=== PATIENT | male | born 1960 | race African-American/Black ===

== ENCOUNTER 2025-02-20 04:23 | Emergency (ER) | payer MEDICARE, SELFPAY ==
--- NOTE | ~2025-02-20 | CT_ITS ---
EXAMINATION: CTA chest abdomen pelvis DATE: 02/20/2025 05:22 INDICATION: Widened mediastinum, chest pain and shortness of breath TECHNIQUE: Computed tomographic angiography (CTA) of the chest, abdomen and pelvis was performed with 100 cc of Omnipaque-350 intravenous contrast. Additional 3D reconstructions utilizing rotating maxim um intensity projection (MIP) were performed. Automated exposure control and iterative reconstruction technique were employed. The dose-length product was 838.10 mGy-cm. COMPARISON: None FINDINGS: Chest : Lungs are clear with no pneumonia, pulmonary edema, pleural effusion or pneumothorax. Heart size is n ormal. No pericardial effusion. Aortic valve calcification. Thoracic aorta is normal in caliber with no dissection. There is good opacification of the pulmonary arteries demonstrating no pulmonary embol ism. No pathologically enlarged thoracic lymphadenopathy. Small sliding-type hiatal hernia. Mild thor acic spondylosis. Abdomen and pelvis: Liver, gallbladder, spleen, pancreas and bilateral adrenal glands are normal. Bilateral renal cysts t he largest on the left measuring 2.4 cm. There are few diverticula along the descending colon without adjacent comparison to suggest diverticulitis. Small bowel and appendix are normal. Bladder is doreen l. Mild prostatomegaly measuring 3.8 x 3.5 cm. No free intraperitoneal gas or fluid. No pathologicall y enlarged abdominal or pelvic lymphadenopathy. There is calcified atherosclerosis of the normal pieter gil aorta and many of the other arteries with no evident hemodynamically significant stenosis. There is a partially thrombosed fusiform aneurysm of the right internal iliac artery measuring up to 2.1 cm . Mild lumbar spondylosis. IMPRESSION: 1. No aortic aneurysm/dissection or other acute cardiopulmonary disease. 2. 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 3. No acute intra-abdominal/pelvic process. 4. Prostatomegaly. 5. Small sliding-type hiatal hernia. Reviewed, dictated and finalized at location A. IMPRESSION: 1. No aortic aneurysm/dissection or other acute cardiopulmonary disease. 2. Partially thrombosed 2.1 cm fusiform aneurysm of the right internal iliac ar niraj. 3. No acute intra-abdominal/pelvic process. 4. Prostatomegaly. 5. Small sliding-type hiatal hernia.
--- NOTE | ~2025-02-20 | XR_ITS ---
EXAMINATION: XR chest 1V portable DATE: 02/20/2025 04:39 INDICATION: Chest pain TECHNIQUE: frontal view of the chest was obtained. COMPARISON: None FINDINGS: The lungs are clear with no focal airspace opacities, pulmonary edema, pleural effusion or pneumothor ax. Heart size is normal. Tortuous thoracic aorta. IMPRESSION: 1. No acute cardiopulmonary disease. Reviewed, dictated and finalized at location A.
[2025-02-20 04:23] VITALS: BP 177/86; PULSE 86; RESP 23; TEMP 36.7
--- NOTE | 2025-02-20 04:28 | ECG_ITS ---
Test Date: 2025-02-20 04:29:03 Measurements Intervals [place] Rate: 73 P: 37 MN: 152 QRS: -24 QRSD: 109 T: 28 QT: 342 QTc: 378 Interpretive Statements SINUS RHYTHM BORDERLINE LEFT AXIS DEVIATION [QRS AXIS < -20] MODERATE VOLTAGE CRITERIA FOR LVH, CONSIDER NORMAL VARIANT [MEETS CRITERIA IN ONE OF: R(aVL), S(V1), R(V5), R(V5/V6)+S(V1)] NONSPECIFIC T-WAVE ABNORMALITY No previous ECG available for comparison Electronically Signed On 02-20-2025 10:51:07 CDT by Jamal Khan M.D.
[2025-02-20 04:29] VITALS: PULSE 76
[2025-02-20 04:37] LABS: Basophils Absolute Auto 0.1 K/mm3 (0.0-0.1); Basophils Percent Auto 0.6 % (0.2-1.2); Eosinophils Absolute Auto 0.3 K/mm3 (0-0.3); Eosinophils Percent Auto 3.2 % (0-4.4); Hematocrit 43.4 % (42.0-52.0); Hemoglobin 13.2 g/dL (14.0-18.0); Immature Granulocyte Absolute 0.02 K/mm3 (0.00-0.031); Immature Granulocyte Percent A 0.3 % (0-0.5); Lymphocytes Absolute Auto 2.56 K/mm3 (0.9-3.2); Lymphocytes Percent Auto 32.9 % (18.3-44.2); Mean Corpuscular HGB Conc 30.4 g/dl (32-36); Mean Corpuscular Volume 88.8 fl (80-100); Mean Platelet Volume 10.9 fl (7.4-10.4); Monocytes Absolute Auto 1.1 K/mm3 (0.1-0.6); Monocytes Percent Auto 14.1 % (2.6-8.5); Neutrophils Absolute Auto 3.8 K/mm3 (1.3-6.7); Neutrophils Percent Auto 48.9 % (45.5-73.1); Platelet Count Result 162 k/mm3 (150-375); Red Blood Count 4.89 M/mm3 (4.6-6.20); Red Cell Distribution Width 14.9 % (11.5-14.5); White Blood Count 7.8 K/mm3 (4.5-10.0)
[2025-02-20 04:49] LABS: Partial Thromboplastin Time 25.8 Seconds (22.3-36.8); Prothrombin Time 13.6 Seconds (11.1-14.7)
--- NOTE | 2025-02-20 04:51 | PC.NURSE ---
pt pulled out iv - edp huitron at bedside with ultrasound to place a longer us iv.
[2025-02-20 05:00] LABS: Troponin I < 0.012 ng/mL (0.000-0.034)
[2025-02-20 05:02] LABS: Alanine Aminotransferase 18 U/L (6-50); Albumin Level 4.3 g/dL (3.5-5.1); Alkaline Phosphatase 52 U/L (38-126); Anion Gap 9 mmol/L (4-12); Aspartate Amino Transferase 34 U/L (17-59); Bilirubin,Total 0.9 mg/dL (0.2-1.3); Blood Urea Nitrogen 21 mg/dL (9-20); Carbon Dioxide 24 mmol/L (22-30); Chloride 109 mmol/L (98-107); Estimated CRCL calculation 58 ml/min; Estimated Glomerular Filt Rate > 60; Glucose 91 mg/dL (65-110); Lipase 114 U/L (23-300); Potassium 4.4 mmol/L (3.4-5.0); Sodium 142 mmol/L (137-145)
--- NOTE | 2025-02-20 05:21 | ED_ITS ---
HPI - Chest Pain General Chief Complaint: Chest Pain <Flor Olivera MD - Last Filed: 02/20/25 06:56> Stated Complaint: chest pain <Flor Olivera MD - Last Filed: 02/20/25 06:56> Time Seen by Provider: 02/20/25 04:40 <Flor Olivera MD - Last Filed: 02/20/25 06:56> History of Present Illness HPI narrative: Patient presents here with chest pain ongoing since yesterday, has not had this before, associated with some nausea, shortness of breath. Nonradiating. < Flor Olivera MD - Last Filed: 02/20/25 06:56> Related Data Home Medications: Home Medications Medication Instructions Recorded Confirmed Last Taken Type aspirin 81 mg tablet,delayed 81 mg PO DAILY 02/20/25 02/20/25 Unknown History release (Adult Aspirin Regimen) carvedilol 12.5 mg tablet 12.5 mg PO BID 02/20/25 02/20/25 Unknown History clopidogrel 75 mg tablet 75 mg PO DAILY 02/20/25 02/20/25 Unknown History ezetimibe 10 mg tablet 10 mg PO DAILY 02/20/25 02/20/25 Unknown History olmesartan 40 mg tablet 40 mg PO DAILY 02/20/25 02/20/25 Unknown History rosuvastatin 40 mg tablet (Crestor) 40 mg PO DAILY 02/20/25 02/20/25 Unknown History <Flor Olivera MD - Last Filed: 02/20/25 06:56> Allergies/Adverse Reactions: Allergies Allergy/AdvReac Type Severity Reaction Status Date / Time amoxicillin Allergy Unknown Other Verified 02/20/25 04:42 erythromycin base Allergy Unknown Other Verified 02/20/25 04:42 <Flor Olivera MD - Last Filed: 02/20/25 06:56> Review of Systems 2 Review of Systems: All systems reviewed & are unremarkable except as noted in HPI and below <Flor Olivera MD - Last Filed: 02/20/25 06:56> PMFSH Family History Family History: Family History (System 09/08/19 @ 12:23 by Lisa Benitez) Father Hypertension Family history of diabetes mellitus in first degree relative Mother Hypertension Grandparent Family history of throat cancer <Flor Olivera MD - Last Filed: 02/20/25 06:56> Social History Social History: Social History (System 09/08/19 @ 12:23 by Lisa Benitez) Smoking status: Never smoker Alcohol intake: current <Flor Olivera MD - Last Filed: 02/20/25 06:56> Exam 2 Narrative: EXAMINATION OF ORGAN SYSTEMS/BODY AREAS: Constitutional: Vital signs per nursing GENERAL: Diaphoretic HEAD: Normal with no signs of head trauma. EYES: EOMI, conjunctiva normal ENT: Hearing grossly intact LUNGS: Nonlabored breathing. Clear to auscultation bilaterally HEART: [Regular rate and rhythm] ABD: [Soft], [nontender to palpation] EXT: Right BKA SKIN: [No rashes or lesions.] NEURO: [Alert and oriented x 3. No gross focal sensory or strength deficits.] PSYCH: Normal affect <Flor Olivera MD - Last Filed: 02/20/25 06:56> Course Course Emergency Course: Patient signed out to me pending repeat troponin and a reassessment. ED attending had already discussed this plan with the patient who was in agreement. It was reported that patient's CTA was fine. Repeat troponin is within normal limits. I did reassess patient at bedside approximately 8:30 a.m. and he does state that he is feeling much better and was aware of the plan and in agreement. He is retired and in not have any work note. He states he has a primary care physician but no revenue accountant. Referral/contact information will be provided for 1. Patient discharged home in stable condition. Dr. Olivera reports that she had discussed the incidental finding of the anuerysm with patient as well. < Loly Stewart MD - Last Filed: 02/20/25 08:35> Vital Signs Vital signs: Vital Signs Temperature 98.0 F 02/20/25 04:23 Pulse Rate 86 02/20/25 04:23 Respiratory Rate 23 H 02/20/25 04:23 Blood Pressure 177/86 H 02/20/25 04:23 Oxygen Delivery Room Air 02/20/25 04:23 Temperature 98.0 F 02/20/25 04:23 Pulse Rate 58 L 02/20/25 07:27 Respiratory Rate 18 02/20/25 07:27 Blood Pressure 144/74 H 02/20/25 07:27 Pulse Oximetry 98 02/20/25 07:27 Oxygen Delivery Room Air 02/20/25 04:30 <Flor Olivera MD - Last Filed: 02/20/25 06:56> Vital Signs Temperature 98.0 F 02/20/25 04:23 Pulse Rate 86 02/20/25 04:23 Respiratory Rate 23 H 02/20/25 04:23 Blood Pressure 177/86 H 02/20/25 04:23 Oxygen Delivery Room Air 02/20/25 04:23 Temperature 98.0 F 02/20/25 04:23 Pulse Rate 58 L 02/20/25 07:27 Respiratory Rate 18 02/20/25 07:27 Blood Pressure 144/74 H 02/20/25 07:27 Pulse Oximetry 98 02/20/25 07:27 Oxygen Delivery Room Air 02/20/25 04:30 <Loly Stewart MD - Last Filed: 02/20/25 08:35> Procedures EJ/Peripheral Line Arm L: EJ/Peripheral Line Date: 02/20/25 <Flor Olivera MD - Last Filed: 02/20/25 06:56> Skin Cleansed in Sterile Fashion: Yes <Flor Olivera MD - Last Filed: 02/20/25 06:56> Ultrasound Guided: Yes <Flor Olivera MD - Last Filed: 02/20/25 06:56> Size (gauge): 18 <Flor Olivera MD - Last Filed: 02/20/25 06:56> IV Secured and Dressing Applied: Yes <Flor Olivera MD - Last Filed: 02/20/25 06:56> Patient Tolerated Procedure: well and no complications <Flor Olivera MD - Last Filed: 02/20/25 06:56> MDM - Chest Pain MDM Narrative Medical decision making narrative: ED COURSE AND MEDICAL DECISION MAKIN-year-old male presenting with chest pain. EKG done in triage negative for acute ischemic changes. Cardiac workup is initiated. EKG: Performed in triage and interpreted by me. Normal sinus rhythm. Rate [73]. Normal/left axis. NC normal. QRS duration normal. QTc normal. Some T-wave flattening but otherwise no ST elevations or depressions. Chest x-ray on my independent interpretation seems to have widened mediastinum, this with his diaphoresis makes me very concerned for possible dissection/aorta rupture so I will obtain CTA rule out aortic catastrophe, ultrasound IV placed by myself. 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 Discussed with patient and that he should follow-up with PCP for further monitoring. Will be signed out to oncoming ER physician pending repeat troponin <Flor Olivera MD - Last Filed: 02/20/25 06:56> Lab Data Result diagrams: 02/20/25 04:32 02/20/25 04:32 <Flor Olivera MD - Last Filed: 02/20/25 06:56> Labs: Lab Results 02/20/25 02/20/25 Range/Units 04:32 07:52 WBC 7.8 (4.5-10.0) K/mm3 RBC 4.89 (4.6-6.20) M/mm3 Hgb 13.2 L (14.0-18.0) g/dL Hct 43.4 (42.0-52.0) % MCV 88.8 (80-100) fl MCH 27.0 (26-34) pg MCHC 30.4 L (32-36) g/dl RDW 14.9 H (11.5-14.5) % Plt Count 162 (150-375) k/mm3 MPV 10.9 H (7.4-10.4) fl Immature Gran % (Auto) 0.3 (0-0.5) % Neut % (Auto) 48.9 (45.5-73.1) % Lymph % (Auto) 32.9 (18.3-44.2) % [place] % (Auto) 14.1 H (2.6-8.5) % Eos % (Auto) 3.2 (0-4.4) % Baso % (Auto) 0.6 (0.2-1.2) % Lymph # (Auto) 2.56 (0.9-3.2) K/mm3 [place] # (Auto) 1.1 H (0.1-0.6) K/mm3 Eos # (Auto) 0.3 (0-0.3) K/mm3 Baso # (Auto) 0.1 (0.0-0.1) K/mm3 Abs Immat Gran (auto) 0.02 (0.00-0.031) K/mm3 Absolute Neuts (auto) 3.8 (1.3-6.7) K/mm3 Absolute Nucleated RBC 0.000 (0.0-0.012) K/mm3 Nucleated RBC % 0.0 (0.0-0.2) % PT 13.6 (11.1-14.7) Seconds INR 1.0 APTT 25.8 (22.3-36.8) Seconds Sodium 142 (137-145) mmol/L Potassium 4.4 (3.4-5.0) mmol/L Chloride 109 H (98-107) mmol/L Carbon Dioxide 24 (22-30) mmol/L Anion Gap 9 (4-12) mmol/L BUN 21 H (9-20) mg/dL Creatinine 1.08 (0.7-1.3) mg/dL Estim Creat Clear Calc 58 ml/min Estimated GFR > 60 (59 - ) Glucose 91 (65-110) mg/dL Calcium 9.0 (8.4-10.2) mg/dL Total Bilirubin 0.9 (0.2-1.3) mg/dL AST 34 (17-59) U/L ALT 18 (6-50) U/L Alkaline Phosphatase 52 (38-126) U/L Troponin I < 0.012 < 0.012 (0.000-0.034) ng/mL Total Protein 8.0 (6.3-8.2) g/dL Albumin 4.3 (3.5-5.1) g/dL Lipase 114 (23-300) U/L <Flor Olivera MD - Last Filed: 02/20/25 06:56> Lab Results 02/20/25 02/20/25 Range/Units 04:32 07:52 WBC 7.8 (4.5-10.0) K/mm3 RBC 4.89 (4.6-6.20) M/mm3 Hgb 13.2 L (14.0-18.0) g/dL Hct 43.4 (42.0-52.0) % MCV 88.8 (80-100) fl MCH 27.0 (26-34) pg MCHC 30.4 L (32-36) g/dl RDW 14.9 H (11.5-14.5) % Plt Count 162 (150-375) k/mm3 MPV 10.9 H (7.4-10.4) fl Immature Gran % (Auto) 0.3 (0-0.5) % Neut % (Auto) 48.9 (45.5-73.1) % Lymph % (Auto) 32.9 (18.3-44.2) % [place] % (Auto) 14.1 H (2.6-8.5) % Eos % (Auto) 3.2 (0-4.4) % Baso % (Auto) 0.6 (0.2-1.2) % Lymph # (Auto) 2.56 (0.9-3.2) K/mm3 [place] # (Auto) 1.1 H (0.1-0.6) K/mm3 Eos # (Auto) 0.3 (0-0.3) K/mm3 Baso # (Auto) 0.1 (0.0-0.1) K/mm3 Abs Immat Gran (auto) 0.02 (0.00-0.031) K/mm3 Absolute Neuts (auto) 3.8 (1.3-6.7) K/mm3 Absolute Nucleated RBC 0.000 (0.0-0.012) K/mm3 Nucleated RBC % 0.0 (0.0-0.2) % PT 13.6 (11.1-14.7) Seconds INR 1.0 APTT 25.8 (22.3-36.8) Seconds Sodium 142 (137-145) mmol/L Potassium 4.4 (3.4-5.0) mmol/L Chloride 109 H (98-107) mmol/L Carbon Dioxide 24 (22-30) mmol/L Anion Gap 9 (4-12) mmol/L BUN 21 H (9-20) mg/dL Creatinine 1.08 (0.7-1.3) mg/dL Estim Creat Clear Calc 58 ml/min Estimated GFR > 60 (59 - ) Glucose 91 (65-110) mg/dL Calcium 9.0 (8.4-10.2) mg/dL Total Bilirubin 0.9 (0.2-1.3) mg/dL AST 34 (17-59) U/L ALT 18 (6-50) U/L Alkaline Phosphatase 52 (38-126) U/L Troponin I < 0.012 < 0.012 (0.000-0.034) ng/mL Total Protein 8.0 (6.3-8.2) g/dL Albumin 4.3 (3.5-5.1) g/dL Lipase 114 (23-300) U/L <Loly Stewart MD - Last Filed: 02/20/25 08:35> Discharge Plan Discharge Clinical Impression: Aneurysm of right internal iliac artery, Chest pain <Flor Olivera MD - Last Filed: 02/20/25 06:56> Patient Disposition: Home <Flor Olivera MD - Last Filed: 02/20/25 06:56> Condition: Stable <Flor Olivera MD - Last Filed: 02/20/25 06:56> Instructions: Antibiotic Form, Chest Pain (ED) <Flor Olivera MD - Last Filed: 02/20/25 06:56> Additional Instructions: You do have an aneurysm of your right internal iliac artery, please follow-up with your doctor as you may need further monitoring of this. Please come back to the hospital for symptoms return or worsen. Although your workup her chest pain did not reveal an emergent cause, the name of a revenue accountant is listed below given the fact that you are low (but not without) risk. <Flor Olivera MD - Last Filed: 02/20/25 06:56> Patient Language: Nigerian <Flor Olivera MD - Last Filed: 02/20/25 06:56> Prescriptions: No Action aspirin [Adult Aspirin Regimen] 81 mg tablet,delayed release (DR/EC) 81 mg PO DAILY clopidogrel 75 mg tablet 75 mg PO DAILY carvedilol 12.5 mg tablet 12.5 mg PO BID Rx Instructions: must administer with a meal/food rosuvastatin [Crestor] 40 mg tablet 40 mg PO DAILY olmesartan 40 mg tablet 40 mg PO DAILY ezetimibe 10 mg tablet 10 mg PO DAILY <Flor Olivera MD - Last Filed: 02/20/25 06:56> Follow-up/Referrals: Jamal Khan MD [Physician] - Alisia,Arthur Verma MD [Primary Care Provider] - <Flor Olivera MD - Last Filed: 02/20/25 06:56> Time of Disposition: 08:35 <Flor Olivera MD - Last Filed: 02/20/25 06:56> 08:35 <Loly Stewart MD - Last Filed: 02/20/25 08:35>
[2025-02-20] MEDS: MORPHINE SULFATE (*CRX) 4 MG/ML INJ IV PUSH (05:25)
[2025-02-20] MEDS: ONDANSETRON INJ 4 MG/2 ML VIAL IV PUSH (05:25)
--- OUTSIDE RECORDS SUMMARY | 2025-02-20 06:10 | XMS_ITS | Clinical Summary ---
Author Organization [facility] Address [address] [place] [address] Care Team Providers Care Soaking Pits Supervisor Name Role Phone Arthur Crump MD Primary Care Provider [phone] Source Comments [facility],non-owned Affiliates and Associated Physician Practices is amultiple site organization consisting of ambulatory clinics and hospital sitesin [place], [place], [place] and [place]. This disclosure is being madepursuant to the Care Everywhere program and may not contain all information available regarding this patient. Last updated 18.[facility] Allergies Active Allergy Reactions Criticality Noted Date Comments Erythromycin Unknown 04/25/2017 Medications * This document contains information received from the source organization and may not represent a complete record from that organization. * Be aware that medications may not be up to date on this document. Alwaysverify current medications with the patient. lisinopril (PRINIVIL; ZESTRIL) 10 MG tablet Take 10 mg by mouth once daily Active aspirin 325 MG tablet Take 1 Tab by mouth once daily. 0 0 3 Active carvedilol (COREG) 25 MG tablet 1 Tab 2 times daily Resume after PCP visit 30 Tab 7 Active Additional Information Patient taking differently: 12.5 mg2 TIMES DAILY, Resume after PCP visit, Reported on 01/28/2018 ezetimibe (ZETIA) 10 MG tablet Take 10 mg by mouth once daily Active clopidogrel (PLAVIX) 75 MG tablet TAKE 1 TABLET BY MOUTH EVERY DAY 30 tablet 11 8 Active Active Problems Problem Noted Date Diagnosed Date Chest pain 10/06/2013 Immunizations Immunization Administration Dates Next Due INFLUENZA VACCINE 09/09/2013 Social History Tobacco Use Types Packs/Day Years Used Date Smoking Tobacco: Former Cigarettes 1 34.8 S tarted: 04/25/1990 Smokeless Tobacco: Never Tobacco Cessation:Ready to Q uit: No; Counseling Given: Yes Alcohol Use Standard Drinks/Week Comments No 0 (1 standard drink = 0.6 oz pur e alcohol) Sex and Gender Information Value Date Recorded Sex Assigned at Not on file Legal Sex Male 7:38 PM ESTIMATOR LUMBER Gender Identity Not on file Sexual Orientation Not on file Last Filed Vital Signs Vital Sign Reading Time Taken Comments Blood Pressure 144/78 09/22/2018 1:59 PM ESTIMATOR LUMBER Pulse 92 09/22/2018 1:59 PM ESTIMATOR LUMBER Temperature 36.5 C (97.7 F) 01/28/2018 12:00 PM CDT Respiratory Rate 14 09/22/2018 1:59 PM ESTIMATOR LUMBER Oxygen Saturation 94% 09/22/2018 1:59 PM ESTIMATOR LUMBER Inhaled Oxygen Concentration - - Weight 74.8 kg (165 lb) 09/22/2018 1:59 PM ESTIMATOR LUMBER Height 162.6 cm (5' 4 ) 09/22/2018 1:59 PM ESTIMATOR LUMBER Body Mass Index 28.32 09/22/2018 1:59 PM ESTIMATOR LUMBER Plan of Treatment Health Maintenance Due Date Last Done Comments COLOGUARD (AGES 45-75) - COLON CA SCREENING 1959 COLON MONITORING 1959 COLONOSCOPY - COLON CA SCREENING 1959 CT COLONOGRAPHY - COLON CA SCREENING 1959 Colorectal Cancer Screening 1959 FIT - COLON CA SCREENING 1959 FLEX SIG - COLON CA SCREENING 1959 HIV SCREENING 1974 HEPATITIS C SCREENING 06/14/1977 DTAP/TDAP/TD VACCINES (1 - Tdap) 1978 PNEUMOCOCCAL VACCINE 50+ (1 of 1 - PCV) 2009 ZOSTER VACCINE (1 of 2) 2009 SCREENING FOR DIABETES 01/28/2021 8, 04/25/2017, 04/25/2017, Additional history exists LIPID TESTING 04/25/2022 04/25/2017, 09/08/2013 COVID-19 VACCINE ( season) 2024 AAA SCREENING 2024 DEPRESSION SCREENING 10/05/2024 INFLUENZA VACCINE (Season Ended) 2025 09/09/2013 Respiratory Syncytial Virus (RSV) Vaccine Pt: or over 60 yrs (1 - 1-dose 75+ series) 2034 HEPATITIS B VACCINE Aged Out No longe r eligible based on patient's age to complete this topic HIB VACCINE Aged Out No longer eligi ble based on patient's age to complete this topic HPV VACCINE Aged Out No longer eligi ble based on patient's age to complete this topic MENINGOCOCCAL (Group B) VACCINE SHARED DECISION-MAKING Aged Out No longer eligible based on patient's age to complete this topic MENINGOCOCCAL GROUPS A/C/Y/W VACCINE Aged Out No longer eligible based on patient's age to complete this topic Procedures Procedure Name Priority Date/Time Associated Diagnosis Comments BASIC METABOLIC PANEL (CALCIUM TOTAL) JEREMY 01/28/2018 9:26 AM CDT Intracranial arteriosclerosis LIPID PROFILE AM Draw 04/25/2017 3:32 AM CDT from Last 3 Months or Most Recently Relevant to Health Maintenance Results * (ABNORMAL) BASIC METABOLIC PANEL (CALCIUM TOTAL) (01/28/2018 9:26 AM CDT) Glucose 85 74 - 106 mg/dL 01/28/2018 9:43 AM CDT [facility] Sodium 144 136 - 145 mmol/L 01/28/2018 9:43 AM CDT [facility] Potassium 4.1 3.5 - 5.1 mmol/L 01/28/2018 9:43 AM CDT [facility] Chloride 113(H) 98 - 107 mmol/L 01/28/2018 9:43 AM CDT [facility] CO2 24 22 - 31 mmol/L 01/28/2018 9:43 AM CDT [facility] Calcium 8.4(L) 8.5 - 10.1 mg/dL 01/28/2018 9:43 AM CDT [facility] Anion Gap 7(L) 8 - 16 mmol/L 01/28/2018 9:43 AM CDT [facility] BUN 18 7 - 21 mg/dL 01/28/2018 9:43 AM CDT [facility] Creatinine 0.83 0.50 - 1.30 mg/dL 01/28/2018 9:43 AM CDT [facility] eGFR by MDRD >60 >60 mL/min/1.7 3m2 01/28/2018 9:43 AM CDT [facility] eGFR by MDRD >60 >60 mL/min/1.7 3m2 01/28/2018 9:43 AM CDT [facility] Blood BLOOD SPECIMEN / Unknown Venipuncture / Unknown 01/28/2018 9:26 AM CDT 01/28/2018 9:26 AM CDT us Jimmy Suarez MD LAB - CHEMISTRY ORDERABLES Fi nal Result Performing Organization Address [facility] Co de Phone Number [facility] [id number] [place] [id number] * (ABNORMAL) LIPID PROFILE (04/25/2017 3:32 AM CDT) [facility] Signature Cholesterol 195 <200 mg/dL 04/25/2017 4:28 AM CDT [facility] Triglycerides 58 <150 mg/dL 04/25/2017 4:28 AM CDT [facility] HDL Cholesterol 46 >40 mg/dL 7 4:28 AM CDT [facility] LDL Calculated 137(H) <130 mg/dL 04/25/2017 4:28 AM CDT [facility] VLDL Calculated 12 <=30 mg/dL 7 4:28 AM CDT [facility] Chol HDL Ratio 4.2 <4.5 04/25/2017 4:28 AM CDT [facility] LDL/HDL Ratio 3.0 <5.0 04/25/2017 4:28 AM CDT [facility] Blood BLOOD SPECIMEN / Unknown Venipuncture / Unknown 04/25/2017 3:32 AM CDT 04/25/2017 3:39 AM CDT us Jonathan Solorzano MD LAB - CHEMISTRY ORDERABLES Final Result Performing Organization Address City/[facility]/ZIP Co de Phone Number [facility] [address] [place] [address] from Last 3 Months or Most Recently Relevant to Health Maintenance Insurance MEDICAID [facility] Advance Directives * Full Code (Latest Code Status on File) Date Activated Date Inactivated Comments 04/24/2017 11:21 PM 04/28/2017 1:50 PM * FULL RESUSCITATION Date Activated Date Inactivated Comments 09/10/2013 4:00 PM 10/08/2013 2:21 PM * FULL RESUSCITATION Date Activated Date Inactivated Comments 09/08/2013 3:08 AM 09/10/2013 4:00 PM * FULL RESUSCITATION Date Activated Date Inactivated Comments 09/08/2013 1:14 AM 09/08/2013 3:08 AM Care Teams Soaking Pits Supervisor Relationship Specialty Start Date End Date Arthur Crump MD [address] [place] [address] [phone] PCP - General Internal Medicine 04/28/17
--- OUTSIDE RECORDS SUMMARY | 2025-02-20 06:10 | XMS_ITS | Encounter Summary ---
Author Organization [facility] Healthcare Address [facility] [place] [address] Care Team Providers Care Cementer Machine Name Role Phone Arthur Crump MD Primary Care Provider [phone] Jose Miguel Cabrera MD Unavailable Rajan Carrillo MD, Ramy Nowak Unavailable [phone] Miscellaneous, Not In File Unavailable Unava ilable Encounter Details Date Type Department Care Team (Late st Contact Info) Description 02/13/[address] [address] Odalys Reyna, RN Social History Tobacco Use Types Packs/Day Years Used Date Smoking Tobacco: Never Smokeless Tobacco: Never Alcohol Use Standard Drinks/Week Comments Not Currently 0 (1 standard drink = 0.6 oz pur e alcohol) Sex and Gender Information Value Date Recorded Sex Assigned at Not on file Legal Sex Male 1:05 AM VERIFY REP Gender Identity Not on file Sexual Orientation Not on file documented as of this encounter Plan of Treatment Not on file documented as of this encounter Visit Diagnoses Not on filedocumented in this encounter Additional Health Concerns Infection Onset Date Last Indicated Resolved Time COVID: Suspected 04/12/2020 04/12/2020 04/13/2020 10:12 PM CDT Respiratory Infection (SILVIO), contact + droplet Comment:Automatically added due to negative COVID-19 result. 04/13/2020 04/13/2020 04/27/2020 3:0 8 AM CDT documented as of this encounter Care Teams Cementer Machine Relationship Specialty Start Date End Date Arthur Crump MD PCP - General Internal Medicine 08/05/17 Jose Miguel Cabrera MD Consulting Physician Cardiovascular Disease 05/10/19 Ramy Tolentino Jr., MD Surgeon General Surgery 05/10/19 Miscellaneous, Not In File 02/20/20 documented as of this encounter
--- OUTSIDE RECORDS SUMMARY | 2025-02-20 06:10 | XMS_ITS | Referral Summary ---
Author Organization [facility] [place] [address] Address [address] [place] [address] Care Team Providers Care Utility Accounts Director Name Role Phone Arthur Crump MD Primary Care Provider [phone] Jose Miguel Cabrera MD Unavailable Rajan Carrillo MD, Ramy Nowak Unavailable [phone] Miscellaneous, Not In File Unavailable Unava ilable Allergies Active Allergy Reactions Criticality Noted Date Comments Amoxicillin Azithromycin Other (See comments) Reaction: ABDOMINAL PAIN, Medications ezetimibe (ZETIA) 10 mg tablet Take 10 mg by mouth daily 04/10/2019 Active aspirin 81 mg chewable tablet Take 1 tablet (81 mg total) by mouth daily 90 tablet 2 05/11/2019 Active rosuvastatin (CRESTOR) 40 mg tablet Take 1 tablet (40 mg total) by mouth daily 90 tablet 2 05/11/2019 Active cholecalciferol (VITAMIN D-3) 4,000 unit tablet Take 1 tablet (4,000 Units total) by mouth daily 30 tablet 02/21/2020 Active polyethylene glycol (MIRALAX) 17 gram packet Take 1 packet (17 g total) by mouth daily 02/21/2020 Active Active Problems Problem Noted Date Diagnosed Date Disorientation 07/13/2022 Surgical wound, non healing 02/09/2020 Assessment & Plan (02/09/2020 2:12 PM CDT): 11/06 the above. S/p debridement of fasciotomy 05/06/2019. Has been following in the wound care clinic. Obtain CBC, blood and wound cultures to determine need for antibiotics. HTN (hypertension) 02/09/2020 Assessment & Plan (02/09/2020 2:13 PM CDT): Stable. Resumed home coreg, Lisinopril and hctz. Monitor closely. HLD (hyperlipidemia) 02/09/2020 Assessment & Plan (02/09/2020 2:14 PM CDT): On statin. Depression 02/09/2020 Assessment & Plan (02/09/2020 2:14 PM CDT): Zoloft. History of CVA (cerebrovascular accident) 2019 Assessment & Plan (02/09/2020 2:14 PM CDT): With residual right leg weakness and delayed speech. Uses cane for ambulation. Marijuana abuse 02/09/2020 Assessment & Plan (02/09/2020 2:15 PM CDT): Cessation encouraged. PVD (peripheral vascular disease) 02/09/2020 Overview (02/10/2020): Added automatically from request for surgery [id number] Compartment syndrome of right lower extremity Assessment & Plan (02/09/2020 2:13 PM CDT): S/p angioplasty 04/2019. S/p decompression 05/02/19 with medial and lateral incisions. With poor wound healing. Wound care has been consulted for which we appreciate their evaluation and recommendations. General surgery following. On ASA and Plavix. Social History Tobacco Use Types Packs/Day Years Used Date Smoking Tobacco: Never Smokeless Tobacco: Never Alcohol Use Standard Drinks/Week Comments Not Currently 0 (1 standard drink = 0.6 oz pur e alcohol) Sex and Gender Information Value Date Recorded Sex Assigned at Not on file Legal Sex Male 1:05 AM DIGITAL IMAG[employer] Gender Identity Not on file Sexual Orientation Not on file Last Filed Vital Signs Vital Sign Reading Time Taken Comments Blood Pressure 121/69 07/14/2022 5:00 PM CDT Pulse 57 07/14/2022 5:00 PM CDT Temperature 36.4 C (97.5 F) 07/14/2022 4:00 PM CDT Respiratory Rate 15 07/14/2022 5:00 PM CDT Oxygen Saturation 98% 07/14/2022 5:00 PM CDT Inhaled Oxygen Concentration - - Weight 75.2 kg (165 lb 12.6 oz) 07/13/2022 7:49 PM CDT Height 162.6 cm (5' 4 ) 07/13/2022 8:00 PM CDT Body Mass Index 28.46 07/13/2022 7:49 PM CDT Plan of Treatment Not on file Medical Devices Implanted Type Area Physician [facility]gent [facility] Device Identifier Shelf Expiration Date Model / Serial / Lot [employer] [id number] Miroderm Fenestrated 15x8cm Allograft Noncrosslink L Notch Matrix - [id number] Implanted:Qty: 1 on 05/06/2019 by Ramy Tolentino Jr., MD at [facility] Right: Leg [employer] 01/02/2021 [id number]- / / [id number] [employer] [id number] Gentrix 10x7cm Graft Soft Tissue Porcine Urinary Bladder - [id number] - [id number] Implanted:Qty: 1 on 02/13/2020 by Ramy Tolentino Jr., MD at [facility] Right: Leg [employer] 09/03/2021 [id number] / [id number] / [id number] [employer] [id number] Micromatrix Mirco Particle Matrix 1000mg Tissue - [id number] - [id number] Implanted:Qty: 1 on 02/13/2020 by Ramy Tolentino Jr., MD at [facility] Right: Leg [employer] 07/04/2021 [id number] / [id number] / [id number] [employer] [id number] Micromatrix Mirco Particle Matrix 1000mg Tissue - [id number] - [id number] Implanted:Qty: 1 on 02/13/2020 by Ramy Tolentino Jr., MD at [facility] Right: Leg [employer] 10/04/2021 [id number] / [id number] / [id number] Procedures Procedure Name Priority Date/Time Associated Diagnosis Comments CT CHEST ABDOMEN PELVIS W CONTRAST ED Urgent/IP Urgent 07/13/2022 3:45 PM CDT HEPATITIS PANEL, ACUTE Routine 05/09/2019 12:04 PM CDT from Last 3 Months or Most Recently Relevant to Health Maintenance Results * CT Chest Abdomen Pelvis W Contrast (07/13/2022 3:45 PM CDT) Anatomical Region Laterality Modality Body N/A Computed Tomogra phy 07/13/2022 4:31 PM CDT Impressions 07/13/2022 4:37 PM CDT 1. Severe stenosis of the right superficial femoral artery at the inferior edge of the field of view. The right superficial femoral artery is not imaged further distal to the stenosis. 2. No other acute process is identified in the chest, abdomen, or pelvis. Dictated by: Bebo Encarnacion MD The radiology attending physician has personally reviewed this study, and had reviewed and/or edited this written report and agrees with it. Electronically signed by: Jama Carver M.D. Narrative 07/13/2022 4:37 PM CDT EXAMINATION: Computed tomography of the chest, abdomen and pelvis with intravenous contrast HISTORY: Sudden onset fall following bradycardia, altered mental status, hypotension TECHNIQUE: Transaxial computed tomographic images of the chest, abdomen and pelvis were obtained with intravenous contrast according to the standard protocol after the uneventful administration of 90 mL Opti-Ray 350 intravenous contrast. COMPARISON: Chest radiograph 05/03/2019 FINDINGS: Chest: Heart size is normal. No pericardial effusion. Normal caliber thoracic aorta and main pulmonary artery. Aortic valve calcifications and coronary calcifications. No lymphadenopathy in the chest. 1.3 cm hypoattenuating left thyroid nodule. Bilateral dependent atelectasis. No focal consolidation. No pleural effusion. No pneumothorax. The trachea is patent. Abdomen/Pelvis: The liver is normal in appearance. No focal hepatic lesion. The gallbladder is normal. No biliary dilatation. The spleen, pancreas, and adrenal glands are normal. Bilateral renal cysts measuring fluid attenuation. Mild bilateral perinephric stranding, which is nonspecific. No hydronephrosis. The urinary bladder is normal in appearance. The prostate is present. Partially imaged left hydrocele. Small hiatal hernia. The duodenal sweep appears normal. No dilated loops of large or small bowel. No focal bowel wall thickening. Colonic diverticulosis without diverticulitis. The appendix is normal. Normal caliber abdominal aorta with mild atherosclerotic calcifications. Atherosclerotic plaque of the right superficial femoral artery resulting in severe stenosis at the inferior edge of the [id number]. The right superficial femoral artery is not imaged any further distally (series 2, image 25). Portal veins are patent. No lymphadenopathy in the abdomen or pelvis. No intraperitoneal free fluid or free air. Well-circumscribed 2 cm lytic lesion with a sclerotic rim in the right iliac bone, likely benign. No acute fracture is identified. Procedure Note Jama Carver MD PhD - 07/13/2022 EXAMINATION: Computed tomography of the chest, abdomen and pelvis with intravenous contrast HISTORY: Sudden onset fall following bradycardia, altered mental status, hypotension TECHNIQUE: Transaxial computed tomographic images of the chest, abdomen and pelvis were obtained with intravenous contrast according to the standard protocol after the uneventful administration of 90 mL Opti-Ray 350 intravenous contrast. COMPARISON: Chest radiograph 05/03/2019 FINDINGS: Chest: Heart size is normal. No pericardial effusion. Normal caliber thoracic aorta and main pulmonary artery. Aortic valve calcifications and coronary calcifications. No lymphadenopathy in the chest. 1.3 cm hypoattenuating left thyroid nodule. Bilateral dependent atelectasis. No focal consolidation. No pleural effusion. No pneumothorax. The trachea is patent. Abdomen/Pelvis: The liver is normal in appearance. No focal hepatic lesion. The gallbladder is normal. No biliary dilatation. The spleen, pancreas, and adrenal glands are normal. Bilateral renal cysts measuring fluid attenuation. Mild bilateral perinephric stranding, which is nonspecific. No hydronephrosis. The urinary bladder is normal in appearance. The prostate is present. Partially imaged left hydrocele. Small hiatal hernia. The duodenal sweep appears normal. No dilated loops of large or small bowel. No focal bowel wall thickening. Colonic diverticulosis without diverticulitis. The appendix is normal. Normal caliber abdominal aorta with mild atherosclerotic calcifications. Atherosclerotic plaque of the right superficial femoral artery resulting in severe stenosis at the inferior edge of the [id number]. The right superficial femoral artery is not imaged any further distally (series 2, image 25). Portal veins are patent. No lymphadenopathy in the abdomen or pelvis. No intraperitoneal free fluid or free air. Well-circumscribed 2 cm lytic lesion with a sclerotic rim in the right iliac bone, likely benign. No acute fracture is identified. IMPRESSION: 1. Severe stenosis of the right superficial femoral artery at the inferior edge of the field of view. The right superficial femoral artery is not imaged further distal to the stenosis. 2. No other acute process is identified in the chest, abdomen, or pelvis. Dictated by: Bebo Encarnacion MD The radiology attending physician has personally reviewed this study, and had reviewed and/or edited this written report and agrees with it. Electronically signed by: Jama Carver M.D. Arnol Wilson MD PhD IMG CT PROCEDURE S Final Result * Hepatitis panel, acute (05/09/2019 12:04 PM CDT) Hep A IgM Negative Negative [facility] Hep B core IgM Negative Negative [facility] Hep C Ab Negative Negative [facility] HepBsAg Nonreactive Nonreactive [facility] Blood specimen (specimen) 05/09/2019 12:04 PM CDT 05/09/2019 12:49 PM CDT Gunnar Gu MD LAB MICROBIOLOGY - GENERAL JUDE KHANNA Final Result [facility] [address] Department [place] [address] from Last 3 Months or Most Recently Relevant to Health Maintenance Insurance [employer] [facility] PPO MEDICARE [employer] CHOICE MEDICARE PPO [employer] CHOICE MEDICARE PPO [employer] CHOICE MEDICARE PPO [place] CHOICE MEDICARE PPO MEDICARE [facility] PPO Advance Directives For more information, please contact: [phone] * Full Code (Latest Code Status on File) Date Activated Date Inactivated Comments 07/13/2022 7:48 PM 07/14/2022 10:55 PM * Full Code Date Activated Date Inactivated Comments 02/10/2020 5:23 PM 02/21/2020 11:48 PM * Full Code Date Activated Date Inactivated Comments 02/09/2020 2:03 PM 02/10/2020 5:23 PM * Full Code Date Activated Date Inactivated Comments 04/30/2019 12:46 PM 05/10/2019 9:23 PM Care Teams Utility Accounts Director Relationship Specialty Start Date End Date Arthur Crump MD PCP - General Internal Medicine 08/05/17 Jose Miguel Cabrera MD Consulting Physician Cardiovascular Disease 05/10/19 Ramy Tolentino Jr., MD Surgeon General Surgery 05/10/19 Miscellaneous, Not In File 02/20/20
--- OUTSIDE RECORDS SUMMARY | 2025-02-20 06:10 | XMS_ITS | Data Portability ---
Author Organization [place] [facility] [employer] [employer], Main Office Address [address] [place] [address] Care Team Providers Care Business Development Agent Name Role Phone JOSE RAFAEL CRUMP Internal Medicine Assessment No assessment recorded. Plan of Treatment Reminders Order Date Submit Date Provider Last Modified By Organization Details Last Modified Time Details Appointments Any 15 2024 01:45P M Jose Rafael Crump MD Not available Not available Not available Lab PSA, serum or plasma 2023 024 [facility] (Lab), [address] [place], [address], 06/02/2024 21:15:33 CMP, serum or plasma 2023 024 [facility] (Lab), [address] [place], [address], 06/02/2024 20:10:16 urinalysi s, complete 2023 024 [facility] (Lab), [address] [place], [address], 06/02/2024 21:15:33 CBC w/ auto diff 2023 024 [facility] (Lab), [address] [place], [address], 06/02/2024 19:57:01 lipid panel, serum 2023 024 [facility] (Lab), [address] [place], [address], 06/02/2024 20:10:18 Referral None recorded. Procedures None recorded. Surgeries None recorded. Imaging None recorded. Medication Orders carvedilo l 25 mg tablet 2024 025 [facility]/Pharmacy #[id number], [address], [place], [address], 01/12/2025 12:00:24 triamcino lone acetonide 0.1 % topical cream [address]/Pharmacy #[id number], [address], [place], [address], 06/01/2024 15:44:55 hydroxyzi ne HCl 25 mg tablet 2023 024 [facility]/Pharmacy #[id number], [address] , [place], [address], 06/01/2024 15:44:55 amoxicill in 500 mg capsule 2023 024 [facility] #[id number], [address], [place], [id number], 05/05/2024 08:00:53 Patient TargetsNo targets recorded. Patient Instructions Encounter Date Encounter Id Patient Instructions Last Modified By Organization Details Last Modified Time 03/17/2024 [id number] depression screening* [email or web address] Not available 06/12/2024 17:01:19 06/01/2024 [id number] dementia rating scale-2* Not available 06/01/2024 17:17:10 depression screening* Not available 06/01/2024 17:17:10 alcohol misuse* Not available 06/01/2024 17:17:10 multi-dimensiona l health assessment questionnaire* Not available 06/01/2024 17:17:09 advance care planning: care instructions Not available 06/01/2024 17:17:10 advance directiv es: care instructions Not available 06/01/2024 17:17:10 [place] Advance Directives Not available 06/01/2024 17:17:10 Personalized a lt Plan and Screening Recommendations Advance Directives - Do you have one? No You have indicated that you are capable of preparing your advance care directive Advance Directives - Do we have your advance directive on file in your health record? No, please bring in a copy at your earliest convenience Primary Prevention/Interven tion (prevents or decreases the chance of common diseases from occurring) Smoking Risk: Non Smoker Alcohol Misuse Screening: Negative Weight: Appropriate Overwei ght continue your current weight loss efforts try to lose 5% of your body weight try to lose 10% of your body weight Physical activity: Need more exercise/physical activity minimum of 10-20 minutes of activity that causes mild breathlessness/day Nutrition: Good Average Fall Risk (screened today): Low Intermediate Refer to attached handout Preventing Falls: After your Visit Vaccines Pneumococcal: Ordered Recommended today Influenza: Your next one in the fall of this year Chronic Disease Risks Stroke: Low Risk Intermediate Risk I have no recommendations Act rufus diagnosis, Continue current treatment plan Heart Attack: Low risk Intermediate Risk I have no recommendations Act rufus diagnosis, Continue current treatment plan Clogging of the Arteries: Low risk Intermediate Risk I have no recommendations Act rufus diagnosis, Continue current treatment plan Diabetes: Low Risk I have no recommendations Secondary Prevention/Interven tion (detects treatable diseases before they may cause symptoms, disability, or ) Prostate Cancer Screening: Colon Cancer Screening: Colonoscopy Date Screening Last Performed: 2021 Eye Disease Screening: No Eye exam necessary Dementia Risk: Low I have no recommendations Depression Screening: Negative [email or web address] Not available 06/01/2024 16:45:29 Reason for Referral None Reported. Results Created Date Observation Date Name Description Value Unit Range Abnormal Flag Note LastModifiedBy Organization Detail LastModifiedTime 06/02/2006/02/2024 CBC/C OMPLE TE BLD COUNT W/DIF F white blood cells 8.0 x10'3 /uL 4.2-10 .8 Not Available [facility] (Lab) [address] [place], [address], 06/02/2024 19:57:01 06/02/20 24 06/02/2024 CBC/C OMPLE TE BLD COUNT W/DIF F red blood cells 4.93 x10'6 /uL 4.10-5 .80 Not Available [facility] (Lab) [address] [place], [address], 06/02/2024 19:57:01 06/02/20 24 06/02/2024 CBC/C OMPLE TE BLD COUNT W/DIF F hemoglobin 14.0 g/dL 13.2-1 7.0 Not Available [facility] (Lab) [address] [place], [address], 06/02/2024 19:57:01 06/02/20 24 06/02/2024 CBC/C OMPLE TE BLD COUNT W/DIF F hematocrit 44.4 % 39.3-5 0.0 Not Available [facility] (Lab) [address] [place], [address], 06/02/2024 19:57:01 06/02/20 24 06/02/2024 CBC/C OMPLE TE BLD COUNT W/DIF F mean red cell volume 90.1 fL 80.0-9 7.0 Not Available [facility] (Lab) [address] [place], [address], 06/02/2024 19:57:01 06/02/20 24 06/02/2024 CBC/C OMPLE TE BLD COUNT W/DIF F mean red cell hemoglobin 28.4 pg 27.0-3 3.0 Not Available [facility] (Lab) [address] [place], [address], 06/02/2024 19:57:01 06/02/20 24 06/02/2024 CBC/C OMPLE TE BLD COUNT W/DIF F mean RBC HGB concentratio n 31.5 g/dL 31.0-3 6.0 Not Available [facility] (Lab) [address] [place], [address], 06/02/2024 19:57:01 06/02/20 24 06/02/2024 CBC/C OMPLE TE BLD COUNT W/DIF F red cell distribution width 15.1 % 11.8-1 5.5 Not Available [facility] (Lab) [address] [place], [address], 06/02/2024 19:57:01 06/02/20 24 06/02/2024 CBC/C OMPLE TE BLD COUNT W/DIF F platelets 221 x10'3 /uL 150-40 0 Not Available [facility] (Lab) [address] [place], [address], 06/02/2024 19:57:01 06/02/2006/02/2024 CBC/C OMPLE TE BLD COUNT W/DIF F mean platelet volume 11.5 fL 9.0-12 .4 Not Available [facility] (Lab) [address] [place], [address], 06/02/2024 19:57:01 06/02/2006/02/2024 CBC/C OMPLE TE BLD COUNT W/DIF F neutrophils 55.1 % 39.0-7 2.0 Not Available [facility] (Lab) [address] [place], [address], 06/02/2024 19:57:01 06/02/2006/02/2024 CBC/C OMPLE TE BLD COUNT W/DIF F lymphocytes 28.6 % 16.0-4 7.0 Not Available [facility] (Lab) [address] [place], [address], 06/02/2024 19:57:01 06/02/2006/02/2024 CBC/C OMPLE TE BLD COUNT W/DIF F monocytes 12.8 % 5.0-12 .0 high Not Available [facility] (Lab) [address] [place], [address], 06/02/2024 19:57:01 06/02/20 24 06/02/2024 CBC/C OMPLE TE BLD COUNT W/DIF F eosinophils 2.3 % 1.0-7. 0 Not Available [facility] (Lab) [address] [place], [address], 06/02/2024 19:57:01 06/02/20 24 06/02/2024 CBC/C OMPLE TE BLD COUNT W/DIF F basophils 0.6 % 0.0-2. 0 Not Available [facility] (Lab) [address] [place], [address], 06/02/2024 19:57:01 06/02/20 24 06/02/2024 CBC/C OMPLE TE BLD COUNT W/DIF F immature granulocytes 0.6 % 0.00-0 .50 high Not Available [facility] (Lab) [address] [place], [address], 06/02/2024 19:57:01 06/02/20 24 06/02/2024 CBC/C OMPLE TE BLD COUNT W/DIF F neutrophils, absolute count 4.38 x10'3 /uL 1.5-8. 0 Not Available [facility] (Lab) [address] [place], [address], 06/02/2024 19:57:01 06/02/20 24 06/02/2024 CBC/C OMPLE TE BLD COUNT W/DIF F lymphocytes, absolute count 2.27 x10'3 /uL 1.07-3 .43 Not Available [facility] (Lab) [address] [place], [address], 06/02/2024 19:57:01 06/02/20 24 06/02/2024 CBC/C OMPLE TE BLD COUNT W/DIF F monocytes, absolute count 1.02 x10'3 /uL 0.29-0 .99 high Not Available [facility] (Lab) [address] [place], [address], 06/02/2024 19:57:01 06/02/20 24 06/02/2024 CBC/C OMPLE TE BLD COUNT W/DIF F eosinophils, absolute count 0.18 x10'3 /uL 0.02-0 .53 Not Available [facility] (Lab) [address] [place], [address], 06/02/2024 19:57:01 06/02/20 24 06/02/2024 CBC/C OMPLE TE BLD COUNT W/DIF F basophils, absolute count 0.05 x10'3 /uL 0.01-0 .08 Not Available [facility] (Lab) [address] [place], [address], 06/02/2024 19:57:01 06/02/20 24 06/02/2024 CBC/C OMPLE TE BLD COUNT W/DIF F immature granulocytes ,absolute 0.05 x10'3 /uL 0.00-0 .05 Not Available [facility] (Lab) [address] [place], [address], 06/02/2024 19:57:01 06/02/20 24 06/02/2024 CBC/C OMPLE TE BLD COUNT W/DIF F nucleated red blood cells 0.0 % -0 Not Available [facility] (Lab) [address] [place], [address], 06/02/2024 19:57:01 06/02/20 24 06/02/2024 CBC/C OMPLE TE BLD COUNT W/DIF F NRBC# 0.00 x10'3 /uL Not Available [facility] (Lab) [address] [place], [address], 06/02/2024 19:57:01 06/02/20 24 06/02/2024 URINA LYSIS COMPL ETE, IRIS color YELLOW Not Available [facility] (Lab) [address] [place], [address], 06/02/2024 20:06:48 06/02/20 24 06/02/2024 URINA LYSIS COMPL ETE, IRIS appear EXTRA TURBID abnormal Not Available [facility] (Lab) [address] [place], [address], 06/02/2024 20:06:48 06/02/20 24 06/02/2024 URINA LYSIS COMPL ETE, IRIS specific gravity 1.026 1.001- 1.030 Not Available [facility] (Lab) [address] [place], [address], 06/02/2024 20:06:48 06/02/20 24 06/02/2024 URINA LYSIS COMPL ETE, IRIS pH 5.5 pH_un its 5.0-9. 0 Not Available [facility] (Lab) [address] [place], [address], 06/02/2024 20:06:48 06/02/20 24 06/02/2024 URINA LYSIS COMPL ETE, IRIS leukocytes NEGATI VE yahaira/u L negati ve- Not Available [facility] (Lab) [address] [place], [address], 06/02/2024 20:06:48 06/02/20 24 06/02/2024 URINA LYSIS COMPL ETE, IRIS nitrite NEGATI VE negati ve- Not Available [facility] (Lab) [address] [place], [address], 06/02/2024 20:06:48 06/02/20 24 06/02/2024 URINA LYSIS COMPL ETE, IRIS protein 30 mg/dL negati ve- abnormal Not Available [facility] (Lab) [address] [place], [address], 06/02/2024 20:06:48 06/02/20 24 06/02/2024 URINA LYSIS COMPL ETE, IRIS glucose NORMAL mg/dL normal - Not Available [facility] (Lab) [address] [place], [address], 06/02/2024 20:06:48 06/02/20 24 06/02/2024 URINA LYSIS COMPL ETE, IRIS ketones NEGATI VE mg/dL negati ve- Not Available [facility] (Lab) [address] [place], [address], 06/02/2024 20:06:48 06/02/20 24 06/02/2024 URINA LYSIS COMPL ETE, IRIS urobilinogen NORMAL mg/dL normal - Not Available [facility] (Lab) [address] [place], [address], 06/02/2024 20:06:48 06/02/20 24 06/02/2024 URINA LYSIS COMPL ETE, IRIS bilirubin NEGATI VE mg/dL negati ve- Not Available [facility] (Lab) [address] [place], [address], 06/02/2024 20:06:48 06/02/20 24 06/02/2024 URINA LYSIS COMPL ETE, IRIS blood NEGATI VE mg/dL negati ve- Not Available [facility] (Lab) [address] [place], [address], 06/02/2024 20:06:48 06/02/20 24 06/02/2024 URINA LYSIS COMPL ETE, IRIS white blood cells NONE /i??h pfi?? 0-8 Not Available [facility] (Lab) [address] [place], [address], 06/02/2024 20:06:48 06/02/20 24 06/02/2024 URINA LYSIS COMPL ETE, IRIS red blood cells 0-4 /i??h pfi?? 0-4 Not Available [facility] (Lab) [address] [place], [address], 06/02/2024 20:06:48 06/02/20 24 06/02/2024 URINA LYSIS COMPL ETE, IRIS bacteria OCCASI ONAL abnormal Not Available [facility] (Lab) [address] [place], [address], 06/02/2024 20:06:48 06/02/20 24 06/02/2024 URINA LYSIS COMPL ETE, IRIS mucous OCCASI ONAL /i??l pfi?? abnormal Not Available [facility] (Lab) [address] [place], [address], 06/02/2024 20:06:48 06/02/20 24 06/02/2024 URINA LYSIS COMPL ETE, IRIS squamous epithelial NONE /i??l pfi?? abnormal Not Available [facility] (Lab) [address] [place], [address], 06/02/2024 20:06:48 06/02/20 24 06/02/2024 COMPR EHENS RUFUS METAB OLIC PANEL sodium 140 mmol/ L 137-14 5 Not Available [facility] (Lab) [address] [place], [address], 06/02/2024 20:10:16 06/02/20 24 06/02/2024 COMPR EHENS RUFUS METAB OLIC PANEL potassium 4.7 mmol/ L 3.5-5. 1 Not Available [facility] (Lab) [address] [place], [address], 06/02/2024 20:10:16 06/02/20 24 06/02/2024 COMPR EHENS RUFUS METAB OLIC PANEL chloride 114 mmol/ L 98-107 high Not Available [facility] (Lab) [address] [place], [address], 06/02/2024 20:10:16 06/02/20 24 06/02/2024 COMPR EHENS RUFUS METAB OLIC PANEL carbon dioxide 19 mmol/ L 22-30 low Not Available [facility] (Lab) [address] [place], [address], 06/02/2024 20:10:16 06/02/20 24 06/02/2024 COMPR EHENS RUUFS METAB OLIC PANEL anion gap 11.7 mmol/ L 14-22 low Not Available [facility] (Lab) [address] [place], [address], 06/02/2024 20:10:16 06/02/20 24 06/02/2024 COMPR EHENS RUFUS METAB OLIC PANEL glucose 91 mg/dL 70-99 Not Available [facility] (Lab) [address] [place], [address], 06/02/2024 20:10:16 06/02/20 24 06/02/2024 COMPR EHENS RUFUS METAB OLIC PANEL BUN 25 mg/dL 8-19 high Not Available [facility] (Lab) [address] [place], [address], 06/02/2024 20:10:16 06/02/20 24 06/02/2024 COMPR EHENS RUFUS METAB OLIC PANEL creatinine 1.13 mg/dL 0.66-1 .25 Not Available [facility] (Lab) [address] [place], [address], 06/02/2024 20:10:16 06/02/20 24 06/02/2024 COMPR EHENS RUFUS METAB OLIC PANEL GFR >60 Refer ence Range : Jena ge GFR Healt hy Adult : >60 mL/mi n/1.7 3 m2 Chron ic Kidne y Disea se: 15-60 mL/mi n/1.7 3 m2 Kidne y Failu re: <15/m L/min /1.73 m2 www.n iddk. nih.g ov The MDRD study equat ion has not been valid ated in child juanita <18 years of age; pregn ant women ; the elder ly >85 years of age; or in some racia l or ethni c subgr oups, such as Hispa nics. Outsi de the valid ated noelle eters , estim ated GFR is less accur ate, requi ring clini sixto judgm ent on a case- by-ca se basis . Clini sixto inter preta tion for other races and ages must be made by the clini sony. The MDRD study equat ion has not been valid ated for the evalu ation of serum creat inine relat ed to nutri [place] stat[place] or medic ation usage . For perso ns <18 years of age, a pedia tric GFR calcu lator is avail able on the [facility] websi te: https ://eddie mandel.blanca griffin/pr ofess ional s/kdo qi/gf r_cal culat or Not Available [facility] (Lab) [address] [place], [address], 06/02/2024 20:10:16 06/02/20 24 06/02/2024 COMPR EHENS RUFUS METAB OLIC PANEL alkaline phosphatase 87 U/L 38-126 Not Available [facility] (Lab) [address] [place], [address], 06/02/2024 20:10:16 06/02/20 24 06/02/2024 COMPR EHENS RUFUS METAB OLIC PANEL alanine aminotransfe rase 17 U/L 0-50 Not Available [facility] (Lab) [address] [place], [address], 06/02/2024 20:10:16 06/02/20 24 06/02/2024 COMPR EHENS RUFUS METAB OLIC PANEL aspartate aminotransfe rase 22 U/L 15-46 Not Available [facility] (Lab) [address] [place], [address], 06/02/2024 20:10:16 06/02/20 24 06/02/2024 COMPR EHENS RUFUS METAB OLIC PANEL bilirubin, total 0.70 mg/dL 0.20-1 .30 Not Available [facility] (Lab) [address] [place], [address], 06/02/2024 20:10:16 06/02/20 24 06/02/2024 COMPR EHENS RUFUS METAB OLIC PANEL calcium 9.2 mg/dL 8.4-10 .2 Not Available [facility] (Lab) [address] [place], [address], 06/02/2024 20:10:16 06/02/20 24 06/02/2024 COMPR EHENS RUFUS METAB OLIC PANEL total protein 7.4 g/dL 6.3-8. 2 Not Available [facility] (Lab) [address] [place], [address], 06/02/2024 20:10:16 06/02/20 24 06/02/2024 COMPR EHENS RUFUS METAB OLIC PANEL albumin 4.3 g/dL 3.0-4. 4 Not Available [facility] (Lab) [address] [place], [address], 06/02/2024 20:10:16 06/02/20 24 06/02/2024 COMPR EHENS RUFUS METAB OLIC PANEL globulin 3.1 g/dL 2.6-4. 2 Not Available [facility] (Lab) [address] [place], [address], 06/02/2024 20:10:16 06/02/20 24 06/02/2024 COMPR EHENS RUFUS METAB OLIC PANEL A/G ratio 1.4 ratio 1.0-2. 0 Not Available [facility] (Lab) [address] [place], [address], 06/02/2024 20:10:16 06/02/20 24 06/02/2024 LIPID PANEL cholesterol 130 mg/dL 140-19 9 low NIH EPHRAIM NSUS RECOM MENDA TION FOR MEERA STERO L: ADULT CHILD LOW RISK: <200 <170 BORDE RLINE : <200- 239 ----- HIGH RISK: >240 >200 Not Available [facility] (Lab) [address] [place], [address], 06/02/2024 20:10:18 06/02/20 24 06/02/2024 LIPID PANEL triglyceride s 92 mg/dL 0-150 NIH EPHRAIM NSUS REPOR T RECOM MENDA TION FOR TRIGL YCERI MARIBEL: ADULT CHILD LOW RISK: <150 ----- BODER LINE: 150-1 99 ----- HIGH RISK: >200 ----- Not Available [facility] (Lab) [address] [place], [address], 06/02/2024 20:10:18 06/02/20 24 06/02/2024 LIPID PANEL HDL cholesterol 38 mg/dL 40- low Not Available [facility] (Lab) [address] [place], [address], 06/02/2024 20:10:18 06/02/20 24 06/02/2024 LIPID PANEL LDL cholesterol, calculated 74 mg/dL 0-130 NIH EPHRAIM NSUS REPOR T RECOM MENDA TIONS FOR LDL: ADULT CHILD LOW RISK <130 <110 (OPTI MAL LDL) <100 ----- BORDE RLINE : 130-1 59 ----- HIGH RISK: >160 >130 A TRIGL YCERI DE RESUL T >400 INVAL IDATE S THE CALCU LATIO N FOR LDL FRACT IONAT ION - THE LDL RESUL T WILL NOT BE REPOR ALAYNA. Not Available [facility] (Lab) [address] [place], [address], 06/02/2024 20:10:18 06/02/20 24 06/02/2024 PSA SCREE N PSA medicare screen 1.58 NG/mL 0.00-4 .00 Not Available [facility] (Lab) [address] [place], [address], 06/02/2024 20:54:55 Result Notes None recorded. Problems Name Problem SNOMED Code Status Onset Date Resolution Date Notes Provider Name and Address Organization Details Recorded Time Pain in bilateral legs [id number] Active 2022 PETER Guerrero, [place] [employer] [facility] [email or web address] [facility] 3 13:42:18 Infection of tooth 036349277 Active 2023 Jose Rafael Crump MD [address], [address], [address] , [employer] [facility] [email or web address] [facility] 4 12:35:45 Urinary incontine vte 833094836 Active 2023 Jose Rafael Crump MD [address], [address], [address] , [employer] [facility] [email or web address] [facility] 4 15:37:44 Pruritic rash 75037685 Active 2023 Jose Rafael Crump MD [address], [address], [address] , [employer] [facility] [email or web address] [facility] 4 15:43:59 Seasonal allergic rhinitis 131099227 Active 2024 PETER Guerrero, [employer] [facility] 5 11:34:02 Chronic depressio n 579765776 Active Not Available [facility] 3 04:52:35 Cerebrova scular accident 996213001 Active Not Available [facility] 3 04:52:35 Transient cerebral ischemia 599651886 Active 2016 Not Available [facility] 3 04:52:35 Chest pain 59078059 Completed Not Available [facility] 3 04:52:35 Current tear of medial cartilage AND/OR meniscus of knee Active Not Available [facility] 3 04:52:35 Knee pain Completed Not Available [facility] 3 04:52:35 Injury of finger 92113871 Completed Not Available [facility] 3 04:52:35 Hyperlipi demia 32253092 Active Not Available [facility] 3 04:52:35 Essential hypertens ion 77881205 Active Not Available [facility] 04:52:35 Overactiv e urinary bladder 405705253 Active 2021 Not Available [facility] 04:52:35 Problem Notes None recorded. Procedures Surgical History Date Name Laterality Status Provider Name and Address Organization Details Recorded Time 06/01/20 Medicare Wellness CPT Code, subsequent completed Nirali Delatorre RN [facility] 06/01/2024 15:48:25 06/01/20 Advanced Care Planning completed Nirali Delatorre RN [facility] 06/01/2024 16:38:44 03/17/20 Chronic care management services completed Shanique Barlow RN [facility] 03/17/2024 12:51:31 02/15/20 Amputation completed Not Available [facility] 04:42:50 07/14/20 14 Orthopedic Procedure completed Not Available [facility] 12/03/2022 04:42:50 Orthopedic Surgery completed Not Available [facility] 12/03/2022 04:42:50 Colonoscopy completed Not Available [facility] 12/03/2022 04:42:50 Imaging Results None recorded. Procedure Notes None recorded. Medical Equipment None Reported. Allergies No known drug allergies Medications Name Sig Start Date Stop Date Status Note LastModified by Organization Details LastModified Time Santyl 250 unit/gram topical ointment 11/09 completed Not Available Not Available Not Available cyclobenz aprine 10 mg tablet active Not Available Not Available No t Available amoxicill in 500 mg capsule Take 1 capsule every 8 hours by oral route. 05/05 completed Not Available Not Available Not Available cilostazo l 100 mg tablet Take 1 tablet twice a day by oral route. 11/09 completed Not Available Not Available Not Available carvedilo l 25 mg tablet TAKE 1 TABLET BY MOUTH TWICE A DAY active Not Available Not Available No t Available carvedilo l 6.25 mg tablet TAKE 1 TABLET twice daily 09/18 completed Not Available Not Available Not Available venlafaxi ne ER 75 mg capsule,e xtended release 24 hr active Not Available Not Available Not Available gabapenti n 600 mg tablet Take 1 tablet 3 times a day by oral route. active Not Available Not Available No t Available carvedilo l 12.5 mg tablet TAKE 1 TABLET TWICE DAILY active Not Available Not Available No t Available polyethyl daquan glycol 3350 17 gram oral powder packet TAKE 17 GM BY MOUTH DAILY active Not Available Not Available No t Available metoprolo l succinate ER 50 mg tablet,ex tended release 24 hr TK 1 T PO QD 02/25 completed Not Available Not Available Not Available hydrocodo ne 5 mg-acetam inophen 325 mg tablet active as needed Not Available Not Available Not Available lisinopri l 20 mg tablet TAKE ONE TABLET TWICE DAILY 05/13 completed Not Available Not Available Not Available ondansetr on HCl 4 mg tablet TAKE 1 TABLET 4 TIMES A DAY NEEDED 06/15 completed Not Available Not Available Not Available Viagra 50 mg tablet TK 1 T PO QD 05/15 completed Not Available Not Available Not Available sertralin e 100 mg tablet Take 1 tablet(s ) every day by oral route for 90 days. active Not Available Not Available No t Available naproxen 250 mg tablet active Not Available Not Available Not Available clopidogr el 75 mg tablet TAKE 1 TABLET EVERY DAY 2024 active JULIAN 09/14/24 NOV 01/12/25 ok to rf Not Available Not Available Not Available aspirin 81 mg tablet,de layed release TAKE 1 TABLET BY MOUTH EVERY DAY active Not Available Not Available No t Available tramadol 50 mg tablet active Not Available Not Available Not Available triamcino lone acetonide 0.1 % topical cream APPLY THIN COAT TO AFFECTED AREA TWICE A DAY 2024 active JULIAN 01/12/25 NOV 03/14/25 ok to rf Not Available Not Available Not Available pentoxify lline ER 400 mg tablet,ex tended release Take 1 tablet 3 times a day by oral route. 11/28 completed Not Available Not Available Not Available oxycodone -acetamin ophen 5 mg-325 mg tablet 10/10 completed Not Available Not Available Not Available pravastat in 80 mg tablet Take 1 tablet(s ) every day by oral route for 90 days. active Not Available Not Available No t Available lorazepam 0.5 mg tablet active Not Available Not Available Not Available cyanocoba chrystal (vit B-12) 500 mcg tablet TAKE 1 TABLET BY MOUTH EVERY DAY active Not Available Not Available No t Available aspirin 325 mg tablet,de layed release TAKE 1 TABLET BY MOUTH EVERY DAY 05/13 completed Not Available Not Available Not Available oxycodone -acetamin ophen 10 mg-325 mg tablet TAKE 1 TABLET BY MOUTH ONCE EVERY 6 HOURS NEEDED FOR PAIN RATED 7 10 active Not Available Not Available No t Available Flagyl 500 mg tablet Take 1 tablet 3 times a day by oral route. 04/18 completed Not Available Not Available Not Available baclofen 10 mg tablet Take 1 tablet 3 times a day by oral route for 90 days. active Not Available Not Available No t Available amlodipin e 10 mg tablet TK 1 T PO QD 09/16 completed Not Available Not Available Not Available cephalexi n 500 mg capsule active Not Available Not Available Not Available paroxetin e 20 mg tablet active Not Available Not Available Not Available oseltamiv ir 75 mg capsule TAKE ONE CAPSULE TWICE DAILY FOR 5 DAYS 03/15 completed Not Available Not Available Not Available Cipro 500 mg tablet Take 1 tablet every 12 hours by oral route for 14 days. 04/18 [facility] [id number]|2025-02-20 06:10:00|2025-02-20 06:10:00|XMS_ITS|GABBY ARMIJO|External Medical Summaries|[id number]|" CONTINUITY OF CARE DOCUMENT Created on: February 20, 2025 Nayan Perez : 1960 Sex: Male Author Name melviser, julietteeuser Address Unknown Organization [facility] Address [address] [place] [address] Phone [phone] Care Team Providers Care Business Development Agent Name Role Phone Jose Miguel Cabrera MD Unavailable [phone] Jose Rafael Crump MD Unavailable Jose Rafael Crump MD Unavailable PROBLEMS Condition Status Date Provider Notes CHEST PAIN, ATYPICAL MILD CA D ON CARDIAC CATHETERIZATION active Raegan Hinojosa MD HTN SYSTOLIC active Raegan Hinojosa MD OBESITY active Raegan Hinojosa MD AORTIC REGURGITATION, MILD TO MODERATE active Raegan Hinojosa MD ENCOUNTERS Date Type Provider Location Encounter Diag nosis - In-person encounter Office Visit Raegan Hinojosa MD [facility] AORTIC REGURGITATION , MILD TO MODERATE - In-person encounter Office Visit Raegan Hinojosa MD [facility] CHEST PAIN, ATYPICAL MILD CAD ON CARDIAC CATHETERIZATIONHTN SYSTOLICOBESITY VITAL SIGNS Date Observation Value Provider blood pressure, diastolic, left arm 80 mm [Hg] [facility] blood pressure, systolic, left arm 122 mm [Hg] [facility] blood pressure, diastolic 80 mm[Hg] [facility] blood pressure, systolic 122 mm[Hg] [facility] pulse rate 64 /min [facility] oxygen saturation, oximetry 97 % [facility] respiratory rate E&M 14 /min [facility] weight E&M 186 [lb_av] [facility] oxygen saturation, oximetry 97 % Lisa Palomo MA blood pressure, diastolic 102 mm[Hg] Carolina Palomo MA blood pressure, systolic 164 mm[Hg] Jorden Palomo MA pulse rate 74 /min Lisa Palomo MA respiratory rate E&M 16 /min Lisa Palomo MA weight E&M 194 [lb_av] Lisa Palomo MA ALLERGIES No Known Drug Allergies RESULTS Date Observation Value Provider Reference Range Interpretation Location triiodothyronine (T3), serum 103 ng/dL Yusuf Baker thyroid stimulating hormone, serum 1.15 u[IU]/mL Yusuf Baker thyroxine, serum, total 7.3 ug/dL Yusuf Baker triglyceride, serum, fasting 88 mg/dL [facility] HDL cholesterol, serum 42 mg/dL [facility] LDL cholesterol, serum 163 mg/dL [facility] cholesterol, serum 223 mg/dL [facility] anion gap, serum 9.7 [facility] globulins, serum, total 3.4 g/dL [facility] estimated glomerular filtration rate >60 [facility] albumin/globulin ratio, serum 1.3 [facility] protein, total, serum 7.8 g/dL [facility] albumin, serum 4.4 g/dL [facility] bilirubin, serum, total 0.90 mg/dL [facility] alkaline phosphatase, serum 102 1/L [facility] alanine aminotransferase (SGPT), serum 28 1/L [facility] aspartate aminotransferase (SGOT), serum 19 1/L [facility] calcium, serum 9.5 mg/dL [facility] blood glucose, fasting 88 mg/dL [facility] creatinine, serum 1.16 mg/dL [facility] urea nitrogen, blood 17.1 mg/dL [facility] carbon dioxide, serum, total 26 mmol/L [facility] chloride, serum 104 mmol/L [facility] potassium, serum 3.7 mmol/L [facility] sodium, serum 136 mmol/L [facility] platelet count 207 10*3/uL [facility] red blood cell distribution width 14.9 % [facility] mean corpuscular hemoglobin concentration, RBC 34.0 g/dL [facility] mean corpuscular hemoglobin, RBC 28.2 pg [facility] mean corpuscular volume, RBC 83.0 fL [facility] hematocrit, blood 45.3 % Yusuf Baker hemoglobin, blood 15.4 g/dL Yusuf Baker erythrocyte (RBC) count 5.46 10*6/mm3 Yusuf Baker monocytes as percent of blood leukocytes 12.9 % Yusuf Baker lymphocytes as percent of blood leukocytes 28.9 % Yusuf Baker leukocyte count, blood 8.8 10*3/mm3 Yusuf Baker troponin I <0.04 Yusuf Baker creatine kinase, serum 188 1/L Yusuf Baker HISTORY OF MEDICATION USE Medication Status Instructions Dates Provider Indications Com ments ISOSORBIDE MONONITRATE ER 30 MG ORAL TABLET EXTENDED RELEASE 24 HOUR active one tab daily; may take OTC Tylenol if H/A develops 0 Rosanna Sandoval RN LOSARTAN POTASSIUM-HCTZ 50-12.5 MG ORAL TABLET active 1 tab daily [facility] SIMVASTATIN 40 MG ORAL TABLET active daily [facility] CARVEDILOL 25 MG ORAL TABLET active 1 tab twice daily [facility] HYDROCODONE-ACETA MINOPHEN TABS completed 2.5/500mg. Take 1 tab every 6-8 hr. as needed for pain. - 2 [facility] TYLENOL WITH CODEINE #3 300-30 MG ORAL TABLET completed po bid as needed 8 - 2 [facility] ASPIRIN 81 MG ORAL TABLET active ONE TAB. DAILY 8 Raegan Hinojosa MD CITALOPRAM HYDROBROMIDE 40 MG TABS (CITALOPRAM HYDROBROMIDE) active once daily [facility] LORAZEPAM 0.5 MG ORAL TABLET active three times daily Lisa Palomo MA METOPROLOL TARTRATE 50 MG ORAL TABLET completed 75 mg po bid 8 - 2 [facility] AMLODIPINE BESYLATE 5 MG ORAL TABLET completed once dialy - 8 Raegan Hinojosa MD TRIAMTERENE-HCTZ 75-50 MG ORAL TABLET completed once daily - 2 [facility] SOCIAL HISTORY Date Observation Value Provider social history reviewed E&M reviewed Raegan Hinojosa MD smoking/tobacco cess ation, patient education and counseling yes Raegan Hinojosa MD social history E&M Marital Statu s: E thnicity: Raegan Hinojosa MD drug use none Raegan Hinojosa MD social history reviewed E&M reviewed Raegan Hinojosa MD physical exercise, f requency, days per week no [employer] caffeine use, averag e drinks per day no [employer] alcohol use, average drinks per day none [employer] smoking status Smoker [employer] MENTAL STATUS Date Observation Value Provider assessment of judgme nt and insight E&M Alert and oriented to time, place and person. Mood and affect are normal. Raegan Hinojosa MD INSURANCE PROVIDERS Payer name Policy type / Coverage type Zahira ferro libertarian ID KAY ARAMBULA O HMO [id number] TREATMENT PLAN Date Name Performer hospital follow up: T he following medications were removed from the medication list: Metoprolol Tartrate 50 Mg Tabs (Metoprolol tartrate) ..... 75 mg po bid His updated medication list for this problem includes: Carvedilol 25 Mg Tabs (Carvedilol) ..... 1 tab twice daily Aspirin 81 Mg Tabs (Aspirin) ..... One tab. daily BP today: 122/80 Prior BP: 164/102 (04/11/2011) C ardiac Cath: 2+ aortic insufficiency. Absence of mitral regurgitation. Normal left ventricular systolic function and hemodynamics with an ejection fraction of 70%. Normal right heart hemodynamics. Systemic hypertension. - CH (06/13/2011) A rterial Doppler (leg): No evidence of pseudoaneurysm or AV fistula formation in the right leg. - GC (06/23/2011) C K: 188 (09/17/2010) Troponin I: <0.04 (09/17/2010) CHOL: 223 (05/31/2011) LDL: 163 (05/31/2011) HDL: 42 (05/31/2011) T (05/31/2011) H gb: 15.4 (05/31/2011) HCT: 45.3 (05/31/2011) RBC: 5.46 (05/31/2011) WBC: 8.8 (05/31/2011) B UN: 17.1 (05/31/2011) Creat: 1.16 (05/31/2011) Glucose: 88 (05/31/2011) N a+: 136 (05/31/2011) K+: 3.7 (05/31/2011) Cl: 104 (05/31/2011) TSH: 1.15 (05/31/2011) T3 (total): 103 (05/31/2011) T4 (total): 7.3 (05/31/2011) E chocardiogram: There is aortic valve sclerosis. Moderate aortic valve regurgitation. Normal aortic root size. Normal left ventricular systolic function. Normal left ventricular size. Moderate concentric left ventricular hypertrophy. There is impaired LV relaxation. Left ventricular e jection fraction is estimated at 55%. GC (03/29/2011) Raegan Hinojosa MD hospital follow up: T he following medications were removed from the medication list: Metoprolol Tartrate 50 Mg Tabs (Metoprolol tartrate) ..... 75 mg po bid Triamterene-hctz 75-50 Mg Tabs (Triamterene-hctz) ..... Once daily His updated medication list for this problem includes: Carvedilol 25 Mg Tabs (Carvedilol) ..... 1 tab twice daily Losartan Potassium-hctz 50-12.5 Mg Tabs (Losartan potassium-hctz) ..... 1 tab daily Aspirin 81 Mg Tabs (Aspirin) ..... One tab. daily BP today: 122/80 P rior BP: 164/102 (04/11/2011) Labs Reviewed: C reat: 1.16 (05/31/2011) C hol: 223 (05/31/2011) HDL: 42 (05/31/2011) LDL: 163 (05/31/2011) T (05/31/2011) Raegan Hinojosa MD hospital follow up Raegan Hinojosa MD FU: T he following medications were removed from the medication list: Amlodipine Besylate 5 Mg Tabs (Amlodipine besylate) ..... Once dialy His updated medication list for this problem includes: Triamterene-hctz 75-50 Mg Tabs (Triamterene-hctz) ..... Once daily Metoprolol Tartrate 50 Mg Tabs (Metoprolol tartrate) ..... 75 mg po bid Aspirin 81 Mg Tabs (Aspirin) ..... One tab. daily BP today: 164/102 Raegan Hinojosa MD FU: T he following medications were removed from the medication list: Amlodipine Besylate 5 Mg Tabs (Amlodipine besylate) ..... Once dialy His updated medication list for this problem includes: Metoprolol Tartrate 50 Mg Tabs (Metoprolol tartrate) ..... 75 mg po bid Aspirin 81 Mg Tabs (Aspirin) ..... One tab. daily BP today: 164/102 Prior BP: / () C ardiac Cath: Mild coronary artery disease. Normal renal arteries bilaterally. Normal LV systolic function. Normal ascending aorta. Essential hypertension. Continue aggressive risk factor modification. [facility] (09/17/2010) C K: 188 (09/17/2010) Troponin I: <0.04 (09/17/2010) Echocardiogram: There is aortic valve sclerosis. Moderate aortic valve regurgitation. Normal aortic root size. Normal left ventricular systolic function. Normal left ventricular size. Moderate concentric left ventricular hypertrophy. There is impaired LV relaxation. Left ventricular e jection fraction is estimated at 55%. (03/29/2011) Raegan Hinojosa MD "
--- OUTSIDE RECORDS SUMMARY | 2025-02-20 06:10 | XMS_ITS | Clinical Summary ---
Author Organization [facility] [place] [address] Address [address] [place] [address] Care Team Providers Care Quality Systems Manager Name Role Phone Arthur Crump MD Primary Care Provider [phone] Jose Miguel Cabrera MD Unavailable Rajan Carrillo MD, Ramy Nowak Unavailable [phone] Miscellaneous, Not In File Unavailable Unava ilable [...] (02/10/2020): Added automatically from request for surgery [id number] Compartment syndrome of right lower extremity Assessment & Plan (02/09/2020 2:13 PM CDT): S/p angioplasty 04/2019. S/p decompression 05/02/19 with medial and lateral incisions. With poor wound healing. Wound care has been consulted for which we appreciate their evaluation and recommendations. General surgery following. On ASA and Plavix. 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 Gender Identity Not on file Sexual Orientation Not on file Obstetrics History Last Filed Vital Signs Vital Sign Reading [...] 07/13/2022 7:49 PM CDT Plan of Treatment Health Maintenance Due Date Last Done Comments Colon Cancer Screening-Colonoscopy 1960 Depression Screening 1960 Prostate Cancer Screening-PSA 1960 DTaP/Tdap/Td Vaccine (1 - Tdap) 1970 Hepatitis B Screening 1977 Pneumococcal vaccine 65+ (1 of 1 - PCV) 2009 Zoster Vaccine (1 of 2) 2009 Fall Risk Assessment 07/14/2023 07/14/2022 Covid-19 Vaccine (3 - 2023-2 5 season) 2024 02/05/2021, 01/08/2021 Influenza Vaccine (#1) 2024 0, 07/09/2018, 07/17/2016, Additional history exists Abdominal Aortic Aneurysm (A AA) Screen 2024 07/13/2022 Well Visit 65+ 2024 Hepatitis C Screening Completed 05/09/2019 Medical Devices Implanted Type Area Sales Merchandising Specialist Device Identifier Shelf Expiration Date Model / Serial / Lot [employer] [id number] Miroderm Fenestrated 15x8cm Allograft Noncrosslink L Notch Matrix - [id number] Implanted:Qty: 1 on 05/06/2019 by Ramy Tolentino Jr., MD at [facility] Right: Leg [employer] 01/02/2021 [facility]- / / [id number] [employer] [id number] Gentrix 10x7cm Graft Soft Tissue Porcine Urinary Bladder - [id number] - [id number] Implanted:Qty: 1 on 02/13/2020 by Ramy Tolentino Jr., MD at [facility] Right: Leg [employer] 09/03/2021 [id number] / [id number] / [id number] [employer] [id number] Micromatrix Mirco Particle Matrix 1000mg Tissue - [id number] - [id number] Implanted:Qty: 1 on 02/13/2020 by Ramy Tolentino Jr., MD at [facility] Right: Leg [employer] 07/04/2021 [id number] / [id number] / [id number] [employer] [id number] Micromatrix Mirco Particle Matrix 1000mg Tissue - [id number] - [id number] Implanted:Qty: 1 on 02/13/2020 by Ramy Tolentino Jr., MD at [facility] Right: Leg [employer] 10/04/2021 [id number] / [id number] / [id number] Procedures Procedure Name Priority Date/Time Associated Diagnosis [...] stenosis at the inferior edge of the ktded-cx-vset. The right superficial femoral artery is not [...] stenosis at the inferior edge of the [id number]. The right superficial femoral artery is not [...] it. Electronically signed by: Jama Carver M.D. us Arnol Wilson MD PhD IMG CT PROCEDURE [...] MICROBIOLOGY - GENERAL JUDE KHANNA Final Result Performing Organization Address City/State/[facility] Co de Phone Number [id number] [phone] [address] [place] [address] from Last 3 Months or Most Recently Relevant to Health Maintenance Insurance PPO MEDICARE HUMANA CHOICE MEDICARE PPO HU[employer]NA CHOICE MEDICARE PPO HU[employer] CHOICE MEDICARE PPO HUMANA CHOICE MEDICARE PPO [facility] Advance Directives For more information, please contact: [phone] * Full Code (Latest Code Status on File) Date Activated Date Inactivated Comments 07/13/2022 7:48 PM 07/14/2022 10:55 PM * Full Code Date Activated Date Inactivated Comments 02/10/2020 5:23 PM 02/21/2020 11:48 PM * Full Code Date Activated Date Inactivated Comments 02/09/2020 2:03 PM 02/10/2020 5:23 PM * Full Code Date Activated Date Inactivated Comments 04/30/2019 12:46 PM 05/10/2019 9:23 PM Care Teams Quality Systems Manager Relationship Specialty Start Date End Date Arthur Crump MD PCP - General Internal Medicine 08/05/17 Jose Miguel Cabrera MD Consulting Physician Cardiovascular Disease 05/10/19 Ramy Tolentino Jr., MD Surgeon General Surgery 05/10/19 Miscellaneous, Not In File 02/20/20
--- NOTE | 2025-02-20 06:15 | PC.NURSE ---
pt attempted to urinate in urinal, with no success.
[2025-02-20 07:27] VITALS: BP 144/74; PULSE 58; RESP 18; O2SAT 98
--- NOTE | 2025-02-20 07:28 | ECG_ITS ---
Test Date: 2025-02-20 07:46:15 Measurements Intervals [place] Rate: 52 P: 66 SD: 191 QRS: -14 QRSD: 96 T: -32 QT: 406 QTc: 378 Interpretive Statements SINUS BRADYCARDIA SEPTAL MYOCARDIAL INFARCTION , OF INDETERMINATE AGE [40+ ms Q WAVE IN V1/V2] MODERATE T-WAVE ABNORMALITY, CONSIDER LATERAL ISCHEMIA [-0.1+ mV T-WAVE IN I/aVL/V5/V6] Compared to ECG 02/20/2025 04:29:03 Myocardial infarct finding now present Possible ischemia now present Sinus rhythm no longer present T-wave abnormality still present Electronically Signed On 02-20-2025 10:52:36 CDT by Jamal Khan M.D.
[2025-02-20 08:20] LABS: Troponin I < 0.012 ng/mL (0.000-0.034)
== END 2025-02-20 08:50 | disposition home or self-care (01) ==
PROVIDERS: Emergency Medicine; Emergency Provider Student in an Organized Health Care Education/Training Program; PCP Internal Medicine
DX: I72.3 Aneurysm of iliac artery (principal); R07.9 Chest pain, unspecified; Z79.02 Long term (current) use of antithrombotics/antiplatelets; Z79.82 Long term (current) use of aspirin; Z79.899 Other long term (current) drug therapy; R94.31 Abnormal electrocardiogram [ECG] [EKG]; R00.1 Bradycardia, unspecified
CPT/HCPCS: 36415; 71045; 71275; 74174; 80053; 83690; 84484; 85025; 85610; 85730; 93005; 96374; 96375; 99284; J2270; J2405; Q9967

== ENCOUNTER 2025-02-22 14:35 | Emergency (ER) | payer MEDICARE, SELFPAY ==
--- OUTSIDE RECORDS SUMMARY | 2025-02-22 14:42 | XMS_ITS | Encounter Summary ---
Author Organization [facility] Healthcare Address [address] [place] [id number] Care Team Providers Care Biomedical Photographer Name Role Phone Arthur Crump MD Primary Care Provider [phone] Jose Miguel Cabrera MD Unavailable Rajan Carrillo MD, Ramy Nowak Unavailable [phone] Miscellaneous, Not In File Unavailable Unava ilable Encounter Details Date Type Department Care Team (Late st Contact Info) Description 02/13/[address] [address] Odalys Reyna, RN Social History Tobacco Use Types Packs/Day Years Used Date Smoking Tobacco: Never Smokeless Tobacco: Never Alcohol Use Standard Drinks/Week Comments Not Currently 0 (1 standard drink = 0.6 oz pur e alcohol) Sex and Gender Information Value Date Recorded Sex Assigned at Not on file 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
--- OUTSIDE RECORDS SUMMARY | 2025-02-22 14:43 | XMS_ITS | Data Portability ---
Author Organization [place] - [facility], Main Office Address [address] [place] [address] Care Team Providers Care Information Officer Name Role Phone JOSE RAFAEL CRUMP Internal Medicine [phone] Assessment No assessment recorded. Plan of Treatment Reminders Order Date Submit Date Provider Last Modified By Organization Details Last Modified Time Details Appointments Any 30 2024 01:00P M CALVIN Garcia Not available Not available Not available Any 15 2024 01:45P Jaylon Crump MD Not available Not available Not available Lab PSA, serum or plasma 2023 024 [facility] (Lab), [address] [place], [address], 06/02/2024 21:15:33 CMP, serum or plasma 2023 024 [facility] (Lab), [address] [place], [address], 06/02/2024 20:10:16 urinalysi s, complete 2023 024 [facility] (Lab), [address] [place], [address], 06/02/2024 21:15:33 CBC w/ auto diff 2023 024 [facility] (Lab), [address] [place], [address], 06/02/2024 19:57:01 lipid panel, serum 2023 024 [facility] ([facility]), [address] [place], [address], 06/02/2024 20:10:18 Referral None recorded. Procedures None recorded. Surgeries None recorded. Imaging None recorded. Medication Orders carvedilo l 25 mg tablet 2024 025 [facility]acy #[id number], [address], [place], [address], 01/12/2025 12:00:24 triamcino lone acetonide 0.1 % topical cream 2023 024 [facility]/Pharmacy #[id number], [address], [place], [address], 06/01/2024 15:44:55 hydroxyzi ne HCl 25 mg tablet 2023 024 [email or web address] [id number], [address] , [place], [address], 02/22/2025 14:29:11 amoxicill in 500 mg capsule [address] [id number], [address] [place], [place], [id number], 05/05/2024 08:00:53 Patient TargetsNo targets recorded. Patient Instructions Encounter Date Encounter Id Patient Instructions Last Modified By Organization Details Last Modified Time 06/01/2024 [id number] dementia rating scale-2* Not available 06/01/2024 17:17:10 depression screening* Not available 06/01/2024 17:17:10 alcohol misuse* Not available 06/01/2024 17:17:10 multi-dimensiona l health assessment questionnaire* Not available 06/01/2024 17:17:09 advance care planning: care instructions Not available 06/01/2024 17:17:10 advance directiv es: care instructions Not available 06/01/2024 17:17:10 [place] Advance Directives Not available 06/01/2024 17:17:10 Personalized [...] I have no recommendations Depression Screening: Negative [email or web address] Not available 06/01/2024 16:45:29 Reason for Referral None Reported. Results Created Date Observation Date Name Description Value Unit Range Abnormal Flag Note LastModifiedBy Organization Detail LastModifiedTime 06/02/20 24 06/02/2024 CBC/C OMPLE TE BLD COUNT W/DIF F white blood cells 8.0 x10'3 /uL 4.2-10 .8 Not Available [facility] (Lab) [address] [place], [address], 06/02/2024 19:57:01 06/02/20 24 06/02/2024 CBC/C OMPLE TE BLD COUNT W/DIF F red blood cells 4.93 x10'6 /uL 4.10-5 .80 Not Available [facility] (Lab) [address] [place], [address], 06/02/2024 19:57:01 06/02/20 24 06/02/2024 CBC/C OMPLE TE BLD COUNT W/DIF F hemoglobin 14.0 g/dL 13.2-1 7.0 Not Available [facility] (Lab) [address] [place], [address], 06/02/2024 19:57:01 06/02/2006/02/2024 CBC/C OMPLE TE BLD COUNT W/DIF F hematocrit 44.4 % 39.3-5 0.0 Not Available [facility] (Lab) [address] [place], [address], 06/02/2024 19:57:01 06/02/20 24 06/02/2024 CBC/C OMPLE TE BLD COUNT W/DIF F mean red cell volume 90.1 fL 80.0-9 7.0 Not Available [facility] (Lab) [address] [place], [address], 06/02/2024 19:57:01 06/02/20 24 06/02/2024 CBC/C OMPLE TE BLD COUNT W/DIF F mean red cell hemoglobin 28.4 pg 27.0-3 3.0 Not Available [facility] (Lab) [address] [place], [address], 06/02/2024 19:57:01 06/02/20 24 06/02/2024 CBC/C OMPLE TE BLD COUNT W/DIF F mean RBC HGB concentratio n 31.5 g/dL 31.0-3 6.0 Not Available [facility] (Lab) [address] [place], [address], 06/02/2024 19:57:01 06/02/20 24 06/02/2024 CBC/C OMPLE TE BLD COUNT W/DIF F red cell distribution width 15.1 % 11.8-1 5.5 Not Available [facility] (Lab) [address] [place], [address], 06/02/2024 19:57:01 06/02/20 24 06/02/2024 CBC/C OMPLE TE BLD COUNT W/DIF F platelets 221 x10'3 /uL 150-40 0 Not Available [facility] (Lab) [address] [place], [address], 06/02/2024 19:57:01 06/02/20 24 06/02/2024 CBC/C OMPLE TE BLD COUNT W/DIF F mean platelet volume 11.5 fL 9.0-12 .4 Not Available [facility] (Lab) [address] [place], [address], 06/02/2024 19:57:01 06/02/2006/02/2024 CBC/C OMPLE TE BLD COUNT W/DIF F neutrophils 55.1 % 39.0-7 2.0 Not Available [facility] (Lab) [address] [place], [address], 06/02/2024 19:57:01 06/02/2006/02/2024 CBC/C OMPLE TE BLD COUNT W/DIF F lymphocytes 28.6 % 16.0-4 7.0 Not Available [facility] (Lab) [address] [place], [address], 06/02/2024 19:57:01 06/02/2006/02/2024 CBC/C OMPLE TE BLD COUNT W/DIF F monocytes 12.8 % 5.0-12 .0 high Not Available [facility] (Lab) [address] [place], [address], 06/02/2024 19:57:01 06/02/20 24 06/02/2024 CBC/C OMPLE TE BLD COUNT W/DIF F eosinophils 2.3 % 1.0-7. 0 Not Available [facility] (Lab) [address] [place], [address], 06/02/2024 19:57:01 06/02/20 24 06/02/2024 CBC/C OMPLE TE BLD COUNT W/DIF F basophils 0.6 % 0.0-2. 0 Not Available [facility] (Lab) [address] [place], [address], 06/02/2024 19:57:01 06/02/20 24 06/02/2024 CBC/C OMPLE TE BLD COUNT W/DIF F immature granulocytes 0.6 % 0.00-0 .50 high Not Available [facility] (Lab) [address] [place], [address], 06/02/2024 19:57:01 06/02/20 24 06/02/2024 CBC/C OMPLE TE BLD COUNT W/DIF F neutrophils, absolute count 4.38 x10'3 /uL 1.5-8. 0 Not Available [facility] (Lab) [address] [place], [address], 06/02/2024 19:57:01 06/02/20 24 06/02/2024 CBC/C OMPLE TE BLD COUNT W/DIF F lymphocytes, absolute count 2.27 x10'3 /uL 1.07-3 .43 Not Available [facility] (Lab) [address] [place], [address], 06/02/2024 19:57:01 06/02/20 24 06/02/2024 CBC/C OMPLE TE BLD COUNT W/DIF F monocytes, absolute count 1.02 x10'3 /uL 0.29-0 .99 high Not Available [facility] (Lab) [address] [place], [address], 06/02/2024 19:57:01 06/02/20 24 06/02/2024 CBC/C OMPLE TE BLD COUNT W/DIF F eosinophils, absolute count 0.18 x10'3 /uL 0.02-0 .53 Not Available [facility] (Lab) [address] [place], [address], 06/02/2024 19:57:01 06/02/20 24 06/02/2024 CBC/C OMPLE TE BLD COUNT W/DIF F basophils, absolute count 0.05 x10'3 /uL 0.01-0 .08 Not Available [facility] (Lab) [address] [place], [address], 06/02/2024 19:57:01 06/02/20 24 06/02/2024 CBC/C OMPLE TE BLD COUNT W/DIF F immature granulocytes ,absolute 0.05 x10'3 /uL 0.00-0 .05 Not Available [facility] (Lab) [address] [place], [address], 06/02/2024 19:57:01 06/02/20 24 06/02/2024 CBC/C OMPLE TE BLD COUNT W/DIF F nucleated red blood cells 0.0 % -0 Not Available [facility] (Lab) [address] [place], [address], 06/02/2024 19:57:01 06/02/20 24 06/02/2024 CBC/C OMPLE TE BLD COUNT W/DIF F NRBC# 0.00 x10'3 /uL Not Available [facility] (Lab) [address] [place], [address], 06/02/2024 19:57:01 06/02/20 24 06/02/2024 URINA LYSIS COMPL ETE, IRIS color YELLOW Not Available [facility] (Lab) [address] [place], [address], 06/02/2024 20:06:48 06/02/20 24 06/02/2024 URINA LYSIS COMPL ETE, IRIS appear EXTRA TURBID abnormal Not Available [facility] (Lab) [address] [place], [address], 06/02/2024 20:06:48 06/02/20 24 06/02/2024 URINA LYSIS COMPL ETE, IRIS specific gravity 1.026 1.001- 1.030 Not Available [facility] (Lab) [address] [place], [address], 06/02/2024 20:06:48 06/02/20 24 06/02/2024 URINA LYSIS COMPL ETE, IRIS pH 5.5 pH_un its 5.0-9. 0 Not Available [facility] (Lab) [address] [place], [address], 06/02/2024 20:06:48 06/02/20 24 06/02/2024 URINA LYSIS COMPL ETE, IRIS leukocytes NEGATI VE yahaira/u L negati ve- Not Available [facility] (Lab) [address] [place], [address], 06/02/2024 20:06:48 06/02/20 24 06/02/2024 URINA LYSIS COMPL ETE, IRIS nitrite NEGATI VE negati ve- Not Available [facility] (Lab) [address] [place], [address], 06/02/2024 20:06:48 06/02/20 24 06/02/2024 URINA LYSIS COMPL ETE, IRIS protein 30 mg/dL negati ve- abnormal Not Available [facility] (Lab) [address] [place], [address], 06/02/2024 20:06:48 06/02/20 24 06/02/2024 URINA LYSIS COMPL ETE, IRIS glucose NORMAL mg/dL normal - Not Available [facility] (Lab) [address] [place], [address], 06/02/2024 20:06:48 06/02/20 24 06/02/2024 URINA LYSIS COMPL ETE, IRIS ketones NEGATI VE mg/dL negati ve- Not Available [facility] (Lab) [address] [place], [address], 06/02/2024 20:06:48 06/02/20 24 06/02/2024 URINA LYSIS COMPL ETE, IRIS urobilinogen NORMAL mg/dL normal - Not Available [facility] (Lab) [address] [place], [address], 06/02/2024 20:06:48 06/02/20 24 06/02/2024 URINA LYSIS COMPL ETE, IRIS bilirubin NEGATI VE mg/dL negati ve- Not Available [facility] (Lab) [address] [place], [address], 06/02/2024 20:06:48 06/02/20 24 06/02/2024 URINA LYSIS COMPL ETE, IRIS blood NEGATI VE mg/dL negati ve- Not Available [facility] (Lab) [address] [place], [address], 06/02/2024 20:06:48 06/02/20 24 06/02/2024 URINA LYSIS COMPL ETE, IRIS white blood cells NONE /i??h pfi?? 0-8 Not Available [facility] (Lab) [address] [place], [address], 06/02/2024 20:06:48 06/02/20 24 06/02/2024 URINA LYSIS COMPL ETE, IRIS red blood cells 0-4 /i??h pfi?? 0-4 Not Available [facility] (Lab) [address] [place], [address], 06/02/2024 20:06:48 06/02/20 24 06/02/2024 URINA LYSIS COMPL ETE, IRIS bacteria OCCASI ONAL abnormal Not Available [facility] (Lab) [address] [place], [address], 06/02/2024 20:06:48 06/02/20 24 06/02/2024 URINA LYSIS COMPL ETE, IRIS mucous OCCASI ONAL /i??l pfi?? abnormal Not Available [facility] (Lab) [address] [place], [address], 06/02/2024 20:06:48 06/02/20 24 06/02/2024 URINA LYSIS COMPL ETE, IRIS squamous epithelial NONE /i??l pfi?? abnormal Not Available [facility] (Lab) [address] [place], [address], 06/02/2024 20:06:48 06/02/20 24 06/02/2024 COMPR EHENS RUFUS METAB OLIC PANEL sodium 140 mmol/ L 137-14 5 Not Available [facility] (Lab) [address] [place], [address], 06/02/2024 20:10:16 06/02/20 24 06/02/2024 COMPR EHENS RUFUS METAB OLIC PANEL potassium 4.7 mmol/ L 3.5-5. 1 Not Available [facility] (Lab) [address] [place], [address], 06/02/2024 20:10:16 06/02/20 24 06/02/2024 COMPR EHENS RUFUS METAB OLIC PANEL chloride 114 mmol/ L 98-107 high Not Available [facility] (Lab) [address] [place], [address], 06/02/2024 20:10:16 06/02/20 24 06/02/2024 COMPR EHENS RUFUS METAB OLIC PANEL carbon dioxide 19 mmol/ L 22-30 low Not Available [facility] (Lab) [address] [place], [address], 06/02/2024 20:10:16 06/02/20 24 06/02/2024 COMPR EHENS RUFUS METAB OLIC PANEL anion gap 11.7 mmol/ L 14-22 low Not Available [facility] (Lab) [address] [place], [address], 06/02/2024 20:10:16 06/02/20 24 06/02/2024 COMPR EHENS RUFUS METAB OLIC PANEL glucose 91 mg/dL 70-99 Not Available [facility] (Lab) [address] [place], [address], 06/02/2024 20:10:16 06/02/20 24 06/02/2024 COMPR EHENS RUFUS METAB OLIC PANEL BUN 25 mg/dL 8-19 high Not Available [facility] (Lab) [address] [place], [address], 06/02/2024 20:10:16 06/02/20 24 06/02/2024 COMPR EHENS RUFUS METAB OLIC PANEL creatinine 1.13 mg/dL 0.66-1 .25 Not Available [facility] (Lab) [address] [place], [address], 06/02/2024 20:10:16 06/02/20 24 06/02/2024 COMPR EHENS RUFUS METAB OLIC PANEL GFR >60 Refer ence Range : Manvel ge GFR Healt hy Adult : >60 [...] calcu lator is avail able on the [facility] websi te: [email or web address] :[email or web address] [email or web address] [email or web address] griffin/pr ofess ional s/kdo qi/gf r_cal culat or Not Available [facility] (Lab) [address] [place], [address], 06/02/2024 20:10:16 06/02/20 24 06/02/2024 COMPR EHENS RUFUS METAB OLIC PANEL alkaline phosphatase 87 U/L 38-126 Not Available [facility] (Lab) [address] [place], [address], 06/02/2024 20:10:16 06/02/20 24 06/02/2024 COMPR EHENS RUFUS METAB OLIC PANEL alanine aminotransfe rase 17 U/L 0-50 Not Available [facility] (Lab) [address] [place], [address], 06/02/2024 20:10:16 06/02/20 24 06/02/2024 COMPR EHENS RUFUS METAB OLIC PANEL aspartate aminotransfe rase 22 U/L 15-46 Not Available [facility] (Lab) [address] [place], [address], 06/02/2024 20:10:16 06/02/20 24 06/02/2024 COMPR EHENS RUFUS METAB OLIC PANEL bilirubin, total 0.70 mg/dL 0.20-1 .30 Not Available [facility] (Lab) [address] [place], [address], 06/02/2024 20:10:16 06/02/20 24 06/02/2024 COMPR EHENS RUFUS METAB OLIC PANEL calcium 9.2 mg/dL 8.4-10 .2 Not Available [facility] (Lab) [address] [place], [address], 06/02/2024 20:10:16 06/02/20 24 06/02/2024 COMPR EHENS RUFUS METAB OLIC PANEL total protein 7.4 g/dL 6.3-8. 2 Not Available [facility] (Lab) [address] [place], [address], 06/02/2024 20:10:16 06/02/20 24 06/02/2024 COMPR EHENS RUFUS METAB OLIC PANEL albumin 4.3 g/dL 3.0-4. 4 Not Available [facility] (Lab) [address] [place], [address], 06/02/2024 20:10:16 06/02/20 24 06/02/2024 COMPR EHENS RUFUS METAB OLIC PANEL globulin 3.1 g/dL 2.6-4. 2 Not Available [facility] (Lab) [address] [place], [address], 06/02/2024 20:10:16 06/02/20 24 06/02/2024 COMPR EHENS RUFUS METAB OLIC PANEL A/G ratio 1.4 ratio 1.0-2. 0 Not Available [facility] (Lab) [address] [place], [address], 06/02/2024 20:10:16 06/02/20 24 06/02/2024 LIPID PANEL cholesterol 130 mg/dL 140-19 9 low NIH EPHRAIM NSUS RECOM MENDA TION FOR MEERA STERO L: ADULT CHILD LOW RISK: <200 <170 BORDE RLINE : <200- 239 ----- HIGH RISK: >240 >200 Not Available [facility] (Lab) [address] [place], [address], 06/02/2024 20:10:18 06/02/20 24 06/02/2024 LIPID PANEL triglyceride s 92 mg/dL 0-150 NIH EPHRAIM NSUS REPOR T RECOM MENDA TION FOR TRIGL YCERI MARIBEL: ADULT CHILD LOW RISK: <150 ----- BODER LINE: 150-1 99 ----- HIGH RISK: >200 ----- Not Available [facility] (Lab) [address] [place], [address], 06/02/2024 20:10:18 06/02/20 24 06/02/2024 LIPID PANEL HDL cholesterol 38 mg/dL 40- low Not Available [facility] (Lab) [address] [place], [address], 06/02/2024 20:10:18 06/02/20 24 06/02/2024 LIPID PANEL LDL cholesterol, calculated 74 mg/dL 0-130 NIH PEHRAIM NSUS REPOR T RECOM MENDA TIONS FOR LDL: ADULT CHILD LOW RISK <130 <110 (OPTI MAL LDL) <100 ----- BORDE RLINE : 130-1 59 ----- HIGH RISK: >160 >130 A TRIGL YCERI DE RESUL T >400 INVAL IDATE S THE CALCU LATIO N FOR LDL FRACT IONAT ION - THE LDL RESUL T WILL NOT BE REPOR ALAYNA. Not Available [facility] (Lab) [address] [place], [address], 06/02/2024 20:10:18 06/02/20 24 06/02/2024 PSA SCREE N PSA medicare screen 1.58 NG/mL 0.00-4 .00 Not Available [facility] (Lab) [address] [place], [address], 06/02/2024 20:54:55 05/19/20 25 02/20/2025 CT, angio gram, chest + abdom en, w/ contr ast No observ ation record ed. Not Available 2024 13:27:20 Result Notes None recorded. Problems Name Problem SNOMED Code Status Onset Date Resolution Date Notes Provider Name and Address Organization Details Recorded Time Pain in bilateral legs 11005771362 [id number] Active 2022 PETER Guerrero, [employer] 3 13:42:18 Infection of tooth 340918673 Active 2023 Jose Rafael Crump MD [address], [place], [address] , [place] 4 12:35:45 Urinary incontine nme 342326759 Active 2023 Jose Rafael Crump MD [address], [place], [address] , [employer] 4 15:37:44 Pruritic rash 62231539 Active 2023 Jose Rafael Crump MD [address], [place], [address] , [place] 4 15:43:59 Seasonal allergic rhinitis 698659208 Active 2024 PETER Guerrero, [employer] 5 11:34:02 Chronic depressio n 600398524 Active Not Available [facility] 3 04:52:35 Cerebrova scular accident 204291217 Active Not Available [facility] 3 04:52:35 Transient cerebral ischemia 636373003 Active 2016 Not Available [employer] 3 04:52:35 Chest pain 75558327 Completed Not Available [facility] 3 04:52:35 Current tear of medial cartilage AND/OR meniscus of knee Active Not Available [employer] 3 04:52:35 Knee pain Completed Not Available [facility] 3 04:52:35 Injury of finger 11092527 Completed Not Available [facility] 3 04:52:35 Hyperlipi demia 69007813 Active Not Available [facility] 3 04:52:35 Essential hypertens ion 56715411 Active Not Available [facility] 3 04:52:35 Overactiv e urinary bladder 572924422 Active 2021 Not Available [facility] 3 04:52:35 Problem Notes None recorded. Procedures Surgical History Date Name Laterality Status Provider Name and Address Organization Details Recorded Time 02/23/20 Transitional_Ca re_Management active CALVIN Garcia [address] [facility] [address], [place], [address], [facility] 02/22/2025 14:21:28 06/01/20 24 Medicare Wellness CPT Code, subsequent completed Nirali Delatorre RN [facility] 06/01/2024 15:48:25 06/01/20 24 Advanced Care Planning completed Nirali Delatorre RN [facility] 06/01/2024 16:38:44 03/17/20 24 Chronic care management services completed Shanique Barlow RN [facility] 03/17/2024 12:51:31 02/15/20 Amputation completed Not Available [facility] 3 04:42:50 07/14/20 14 Orthopedic Procedure completed Not Available [facility] 12/03/2022 04:42:50 Orthopedic Surgery completed Not Available [facility] 12/03/2022 04:42:50 Colonoscopy completed Not Available [facility] 12/03/2022 04:42:50 Imaging Results Imaging Date Name Status LastModified by Organiz ation Details LastModified Time 02/20/2025 CT, angiogram, chest + abdomen, w/ [email or web address] Information not available 02/22/2025 13:27:20 Procedure Notes None recorded. Medical Equipment None [...] COAT TO AFFECTED AREA TWICE A DAY active Not Available Not Available No t Available pentoxify lline ER 400 mg tablet,ex [...] by oral route for 14 days. 04/18 completed Not Available Not Available Not Available hydrocodo ne 7.5 mg-acetam inophen 750 mg tablet active Not Available Not Available Not Available lisinopri l 10 mg tablet TAKE 1 TABLET EVERY DAY 05/17 completed stopped and started [place] an Not Available Not Available Not Available oxybutyni n chloride ER 5 mg tablet,ex tended release 24 hr Take 1 tablet every day by oral route. 01/08 completed Not Available Not Available Not Available gabapenti n 300 mg capsule TK 1 C PO TID active Not Available Not Available No t Available aspirin 81 mg chewable tablet ULTIMATE HOOPS TRAINER ONE T QD 03/16 completed Not Available Not Available Not Available diclofena c sodium 75 mg tablet,de layed release TAKE 1 TABLET BY MOUTH TWICE A DAY NEEDED WITH FOOD 02/22 completed stopped by patient no longer taking Not Available Not Available Not Available monteluka st 10 mg tablet TAKE 1 TABLET BY MOUTH EVERY DAY 02/22 completed stopped by patient Not Available Not Available Not Available hydroxyzi ne HCl 25 mg tablet TAKE 1 TABLET TWICE A DAY BY ORAL ROUTE NEEDED. 02/22 completed stopped by patient no longer taking Not Available Not Available Not Available hydrocodo ne 5 mg-acetam inophen 500 mg tablet active Not Available Not Available Not Available acetamino phen 300 mg-codein e 60 mg tablet active Not Available Not Available Not Available bisacodyl 5 mg tablet,de layed release active Not Available Not Available Not Available hydrochlo rothiazid e 25 mg tablet TAKE 1 TABLET EVERY DAY active Not Available Not Available No t Available zolpidem 5 mg tablet active Not Available Not Available Not Available ergocalci ferol (vitamin D2) 1,250 mcg (50,000 unit) capsule TK 1 C PO ONCE Q WK FOR 7 WKS 08/30 completed Not Available Not Available Not Available nystatin 100,000 unit/gram topical powder APPLY TO THE AFFECTED AREA(S) TWICE DAILY active Not Available Not Available No t Available ibuprofen 600 mg tablet TK 1 T PO Q 6 H PRN P WF active Not Available Not Available No t Available polyethyl daquan glycol 3350 17 gram/dose oral powder MIX 1 CAPFUL WITH 8-10 OZ OF WATER OR JUICE QD 03/16 completed Not Available Not Available Not Available methylpre dnisolone 4 mg tablets in a dose pack TAKE PREPACKA GE DIRECTIO NS STATE 08/08 completed Not Available Not Available Not Available SSD 1 % topical cream APPLY TO BURN/WOU ND BEFORE DRESSING ONCE D active Not Available Not Available No t Available losartan 50 mg-hydroc hlorothia zide 12.5 mg tablet active Not Available Not Available No t Available ondansetr on 4 mg disintegr ating tablet DIS 1 T ON THE TONGUE Q 8 H 08/30 completed Not Available Not Available Not Available sertralin e 50 mg tablet TAKE 1 TABLET EVERY DAY 03/15 completed Not Available Not Available Not Available lisinopri l 2.5 mg tablet TAKE 1 TABLET EVERY DAY active Not Available Not Available No t Available doxycycli ne hyclate 100 mg tablet TAKE ONE TABLET TWICE DAILY 06/15 completed Not Available Not Available Not Available olmesarta n 40 mg tablet TAKE 1 TABLET BY MOUTH EVERY DAY active Not Available Not Available No t Available ezetimibe 10 mg tablet TAKE 1 TABLET BY MOUTH EVERY DAY active Not Available Not Available No t Available Laxative (bisacody l) 5 mg tablet TAKE ALL 6 TABLETS BY MOUTH ONCE AT 8AM ON 01/30 completed Not Available Not Available Not Available cyclobenz aprine 5 mg tablet active Not Available Not Available No t Available olmesarta n 40 mg-hydroc hlorothia zide 25 mg tablet TAKE 1 TABLET BY MOUTH EVERY DAY 04/30 completed Not Available Not Available Not Available rosuvasta tin 40 mg tablet TAKE 1 TABLET EVERY DAY active Not Available Not Available No t Available Cialis 20 mg tablet Take 1 tablet every day by oral route as needed. 05/15 completed Not Available Not Available Not Available Vitamin D3 100 DAILY 11/28 completed Not Available Not Available Not Available gabapenti n 300mg BID 04/18 completed Not Available Not Available Not Available hydrocodo ne 5 mg-acetam inophen 300 mg tablet active Not Available Not Available Not Available ondansetr on HCl (PF) 4 mg/2 mL injection solution Take 2 mL by injectio n route. 06/15 completed Not Available Not Available Not Available peg 3350-elec trolytes 236 gram-22.7 4 gram-6.74 gram-5.86 gram solution 05/12 completed Not Available Not Available Not Available Viibryd 40 mg tablet active Not Available Not Available Not Available Vitamin B12 500QD 11/28 completed Not Available Not Available Not Available Vitals Date Recorded Body height Body mass index (BMI) Body weight Heart rate Oxygen saturation Oxygen saturation in Arterial blood by Pulse oximetry Body temperature Systolic blood pressure Diastolic blood pressure Provider Name and Address Organization Details Last Updated DateTime 4 162.56 cm 28 kg/m2 98385.5 6 g 64 /min 99 % 99 % 98.3 [degF] 138 mm[Hg] 82 mm[Hg] Jennifer George [place] [facility] 4 12:14:15 Date Recorded Body height Body mass index (BMI) Body weight Body temperature Heart rate Oxygen saturation Oxygen saturation in Arterial blood by Pulse oximetry Systolic blood pressure Diastolic blood pressure Provider Name and Address Organization Details Last Updated DateTime 4 162.56 cm 28 kg/m2 02878.5 6 g 98.4 [degF] 70 /min 98 % 98 % 128 mm[Hg] 74 mm[Hg] Jennifer George [place] [facility] 4 15:19:37 Date Recorded Body height Body mass index (BMI) Body weight Heart rate Oxygen saturation Oxygen saturation in Arterial blood by Pulse oximetry Systolic blood pressure Diastolic blood pressure Provider Name and Address Organization Details Last Updated DateTime 4 162.56 cm 28.7 kg/m2 59446.9 3 g 60 /min 98 % 98 % 110 mm[Hg] 60 mm[Hg] Melina jurado KAVEHAbdirashid [place] [facility] 4 10:59:50 Date Recorded Body height Body mass index (BMI) Body weight Body temperature Heart rate Oxygen saturation Oxygen saturation in Arterial blood by Pulse oximetry Provider Name and Address Organization Details Last Updated DateTime 5 162.56 cm 29.7 kg/m2 88926.4 8 g 97.4 [degF] 82 /min 98 % 98 % Melina jurado KAVEHAbdirashid [place] [facility] 5 11:23:26 Date Recorded Systolic blood pressure Diastolic blood pressure Provider Name and Address Organization Details Last Updated DateTime 01/12/2025 168 mm[Hg] 80 mm[Hg] Jose Rafael Crump MD [address], [address], [place] [facility] 01/12/2025 12:03:28 Date Recorded Body height Body mass index (BMI) Body weight Body temperature Heart rate Oxygen saturation Oxygen saturation in Arterial blood by Pulse oximetry Systolic blood pressure Diastolic blood pressure Provider Name and Address Organization Details Last Updated DateTime 5 162.56 cm 27.6 kg/m2 81181.3 7 g 97 [degF] 79 /min 98 % 98 % 212 mm[Hg] 84 mm[Hg] Melina jurado, RMA [employer] 14:10:21 Social History Question Answer Notes LastModified by Organization Details LastModified Time Tobacco Smoking Status Never Smoker Nirali Delatorre RN [facility], [employer] 06/01/2024 15:51:48 Do You Have An Advance Directive? No Paperwork Provided 06/01/2024 [email or web address] Information not available 06/01/2024 Is Blood Transfusion Acceptable In An Emergency? Yes [email or web address] Information not available 06/01/2024 What Is Your Level Of Caffeine Consumption? None [email or web address] Information not available 06/01/2024 In The 14 Days Before Symptom Onset, Have You Had Close Contact With A Laboratory-conf irmed COVID-19 While That Case Was Ill? No Not Applicable [email or web address] Information not available 06/01/2024 In The 14 Days Before Symptom Onset, Have You Had Close Contact With A Person Who Is Under Investigation For COVID-19 While That Person Was Ill? No Not Applicable [email or web address] Information not available 06/01/2024 What Type Of Diet Are You Following? REGULAR [id number] Information not available 12/03/2022 Which Illicit Or Recreational Drugs Have You Used? Martha [email or web address] Information not available 06/01/2024 What Is The Highest Grade Or Level Of School You Have Completed Or The Highest Degree You Have Received? [id number] [email or web address] Information not available 06/01/2024 How Many Days Of Moderate To Strenuous Exercise, Like A Brisk Walk, Did You Do In The Last 7 Days? 0 [email or web address] Information not available 06/01/2024 Have There Been Any Changes To Your Family Or Social Situation? No Information not available 03/17/2024 What Is The Fluoride Status Of Your Home? Fluoridated MIGRATION.[id number] [id number] Information not available 12/03/2022 Are There Any Guns Present In Your Home? No [email or web address] Information not available 06/01/2024 How Many Years Have You Used Illicit Or Recreational Drugs? 49 Age 14 Start [email or web address] Information not available 06/01/2024 Do You Use Insect Repellent Routinely? Yes [email or web address] Information not available 06/01/2024 Where Do You Live? [facility] [email or web address] Information not available 06/01/2024 Presence Of Domestic Violence No [email or web address] Information not available 06/01/2024 Guns Present In The Home? No [email or web address] Information not available 06/01/2024 Are You Able To Care For Yourself? Yes [email or web address] Information not available 06/01/2024 Are You Blind Or Do Yo Have Difficulty Seeing? No [email or web address] Information not available 06/01/2024 Are You Deaf Or Do You Have Serious Difficulty Hearing? No [email or web address] Information not available 06/01/2024 General Stress Level? Low [email or web address] Information not available 06/01/2024 Live Alone Of With Others? With Others [email or web address] Information not available 06/01/2024 Do You Have A Medical Power Of Flight Follower? No [email or web address] Information not available 06/01/2024 What Was The Date Of Your Most Recent Tobacco Screening? 06/01/2024 [email or web address] Information not available 06/01/2024 How Many Children Do You Have? 2 [email or web address] Information not available 06/01/2024 Do You Have Any Pets? No [email or web address] Information not available 06/01/2024 What Is Your Relationship Status? [id number].0301 [id number] Information not available 12/03/2022 Do You Use Your Seat Belt Or Car Seat Routinely? Yes [id number].0301 [id number] Information not available 12/03/2022 Are You Sexually Active? No [email or web address] Information not available 06/01/2024 Do You Have Smoke And Carbon Monoxide Detectors In Your Home? Yes [id number].0301 [id number] Information not available 12/03/2022 Are You Passively Exposed To Smoke? Yes [email or web address] Information not available 06/01/2024 Are There Any Smokers In Your House? Yes [email or web address] Information not available 06/01/2024 How Much Tobacco Do You Smoke? No [email or web address] Information not available 06/01/2024 What Types Of Sporting Activities Do You Participate In? None [email or web address] Information not available 06/01/2024 Do You Use Sunscreen Routinely? Yes [email or web address] Information not available 06/01/2024 Has Tobacco Cessation Counseling Been Provided? No [email or web address] Information not available 06/01/2024 Have You Recently Traveled Abroad? No [email or web address] Information not available 06/01/2024 Have You Used IV Drugs? No [email or web address] Information not available 06/01/2024 Do You Have Any Dietary Restrictions? No [email or web address] Information not available 06/01/2024 Sex: Male Functional Status Question Answer Note LastModified by Organizat ion Details LastModified Time Do you use any illicit or recreational drugs? Yes [email or web address] Information not available 06/01/2024 Do you or have you ever used any other forms of tobacco or nicotine? No [email or web address] Information not available 06/01/2024 What is your level of alcohol consumption? None [id number] Information not available 12/03/2022 Do you or have you ever used smokeless tobacco? Never used smokeless tobacco MIGRATION.[id number] Information not available 12/03/2022 Are you currently employed? No [email or web address] Information not available 06/01/2024 What is your occupation? Disabled [id number] Information not available 12/03/2022 Do you or have you ever used e-cigarettes or vape? Never used electronic cigarettes [id number] Information not available 12/03/2022 What is your exercise level? None [email or web address] Information not available 06/01/2024 Mental Status Question Answer Note LastModified by Organization D etails LastModified Time Do you feel stressed (tense, restless, nervous, or anxious, or unable to sleep at night)? [id number] Information not available 03/17/2024 Family History Relationship Description Onset Age of this Age Resolved Age Notes LastModified by Organization Details LastModified Time Mother Essential hypertension [id number] Not available 12/03/2022 04:42:54 Sister Essential hypertension MIGRATION.408 [id number] Not available 12/03/2022 04:42:54 Father Diabetes mellitus MIGRATION.055 [id number] Not available 12/03/2022 04:42:54 Father Malignant neoplastic disease MIGRATION.802 [id number] Not available 12/03/2022 04:42:54 Medical History Condition Response BLINDNESS N DIVERTICULITIS N BLADDER PROBLEMS N CHICKENPOX Y ALLERGIES/HAYFEVER N BACK INJECTIONS N INFECTIOUS DISEASE N HEART ARRHYTHMIA N COPD N HIGH CHOLESTEROL / HYPERLIPIDEMIA Y EYE PROBLEMS Y BLOOD DISEASES N EDEMA N EAR OR HEARING PROBLEMS Y CHRONIC PAIN SYNDROME N MUMPS N HYPOTHYROIDISM N CONSTIPATION N CAROTID BLOCKAGE N DEPRESSION (INCLUDING POST ) Y BOWEL PROBLEMS N BACK / NECK PROBLEMS N FAILED BACK SYNDROME N STROKE/TIA Y ATHEROSCLEROSIS N BENIGN PROSTATIC HYPERPLASIA N MEASLES N BREAST PROBLEMS N HYPOTENSION N DIALYSIS N ECZEMA N ANEURYSM N CORONARY ARTERY DISEASE (CAD) N ARTHRITIS N ADDICTION CONCERNS N APPENDICITIS N DIABETES, TYPE N BAD TEETH N HEARTBURN / REFLUX N GI N BLOOD CLOTS N AUTISM SPECTRUM DISORDER (ASD) N HEPATITIS / LIVER DISEASE N ASTHMA N CATARACTS N Abdominal Pain N ALZHEIMER'S DISEASE N Brain Problems Y ERECTILE DYSFUNCTION N DEMENTIA N ARTERIAL INSUFFICIENCY N HEADACHES/MIGRAINES Y DIZZINESS N HEART DISEASE/HEART PROBLEMS N AIDS/HIV N CHEMOTHERAPY / RADIATION N HYPERTENSION Deficiency N CARDIAC ARRHYTHMIA N CANCER: SPECIFY N ANXIETY DISORDER N BLOOD TRANSFUSION N ANEMIA/BLOOD DISORDER N CHRONIC EAR INFECTIONS N ATRIAL FIBRILLATION N AUTOIMMUNE DISEASE N FOOT PROBLEM N Immunizations Vaccine Type Date Status Note Provider Nam e and Address Organization Details Recorded Time COVID-19, mRNA, LNP-S, PF, 100 mcg/0.5mL dose or 50 mcg/0.25mL dose 1 completed Shanique Barlow RN null, [facility] 03/17/2024 12:14:30 COVID-19, mRNA, LNP-S, PF, 100 mcg/0.5mL dose or 50 mcg/0.25mL dose 1 completed RACQUEL Valencia, [employer] [facility] 03/17/2024 12:14:30 Influenza, high-dose, quadrivalent, PF 3 completed Jose Rafael Crump MD [address] [place] [address], [address], [facility] 07/13/2023 14:59:48 Influenza, split virus, quadrivalent, PF 2 completed Not Available [facility] 12/03/2022 05:05:00 Influenza, split virus, quadrivalent, PF 0 completed Not Available [facility] 12/03/2022 05:05:00 Influenza, split virus, quadrivalent, PF 8 completed Not Available [facility] 12/03/2022 05:05:00 Influenza, split virus, quadrivalent, preservative 6 completed Not Available [facility] 12/03/2022 05:05:00 Influenza, high-dose, trivalent, PF 4 completed Jose Rafael Crump MD [address], [place], [address], [employer] 09/14/2024 17:34:04 Pneumococcal conjugate PCV20, polysaccharide SHS223 conjugate, adjuvant, PF 4 completed Jose Rafael Crump MD [address], [place], [address], [employer] 09/14/2024 17:34:04 Past Encounters Encounter ID Performer Location Encounter Start Date Encounter Closed Date Diagnosis/Indication Diagnosis SNOMED-CT Code Diagnosis ICD10 Code Diagnosis Note [id number] Jose Rafael Crump MD [facility] [address] [address] 01/07/2021 00:00:00 01/07/2021 12:23:43 [id number] Jose Rafael Crump MD [facility] [address] [address] 04/12/2021 00:00:00 04/12/2021 12:22:52 [id number] Jose Rafael Crump MD [facility] [address] [address] 05/17/2021 00:00:00 05/17/2021 11:20:50 [id number] Jose Rafael Crump MD Krist[facility] [address] [address] 08/28/2021 00:00:00 08/28/2021 11:02:35 [id number] Jose Rafael Crump MD Krist[facility] [address] [address] 12/19/2021 00:00:00 12/19/2021 11:47:36 [id number] Jose Rafael Crump MD [facility] [address] [address] 05/12/2022 00:00:00 05/12/2022 13:29:03 [id number] Jose Rafael Crump MD [facility] [place] [address] [place] [address] 07/21/2022 00:00:00 07/21/2022 12:26:19 [id number] Jose Rafael Crump MD Kristopher[facility] [address] [place] [address] 09/16/2022 00:00:00 09/16/2022 13:04:44 [id number] MD DARCI Winslow[facility] [address] [place] [address] 01/08/2023 15:21:13 01/08/2023 16:04:36 Essential hypertension 03210680 I10 under control Hyperlipidemia 86220364 E78.5 under control Chronic depression 97221 0009 F32.A no meds needed Cerebrovas cular accident 674670480 I63.9 on Adult heal th examination 498839275 Z00.00 colonoscop y- SA- 10/27Pneumo vax - NEVERFlu- 2COVID- Has had vaccines but does not have card Overactive urinary bladder 958354930 N32.81 using pads [id number] Jose Rafael Crump MD [facility] Internal Med [address] [facility] [place] [address] 04/30/2023 14:27:11 04/30/2023 15:33:48 Essential hypertension 94167252 I10 start olmesartan Hyperlipidemia 54013939 E78.5 under control Chronic depression 94533 0009 F32.A no meds needed Cerebrovas cular accident 360308477 I63.9 on meds Adult heal th examination 851957217 Z00.00 colonoscop y-2P SA- 10/27Pneumo vax - NEVERFlu- 2COVID- Has had vaccines but does not have card Overactive urinary bladder 039259684 N32.81 using pads [id number] [facility] [address] [facility] [place] [address] 06/09/2023 14:21:38 06/09/2023 15:04:18 Essential hypertension 73110601 I10 add carvedilol [id number] Jose Rafael Crump MD [facility] Internal [address] [place] [address] 07/13/2023 14:40:36 07/13/2023 15:00:35 Essential hypertension 80051740 I10 much better with current meds Administra tion of influenza vaccine 00822321 Z23 [id number] Jose Rafael Crump MD [facility] Internal [address] [place] [address] 09/24/2023 14:26:42 09/24/2023 14:55:56 Essential hypertension 93324237 I10 much better with current meds Hyperlipidemia 77790433 E78.5 under control Chronic depression 99232 0009 F32.A no meds needed Cerebrovas cular accident 220104972 I63.9 on meds Adult heal th examination 920771308 Z00.00 colonoscop y-2P SA- 10/27Pneumo vax - NEVERFlu- OVID- Has had vaccines but does not have card Overactive urinary bladder 517204455 N32.81 using pads Screening for malignant neoplasm of prostate 609919498 Z12.5 [id number] Jose Rafael Crump MD [facility] Internal [facility] [address] [place] [address] 01/28/2024 14:31:32 01/28/2024 14:52:21 Essential hypertension 16731461 I10 under control Hyperlipidemia 87628405 E78.5 under control Chronic depression 87319 0009 F32.A no meds needed Cerebrovas cular accident 224665429 I63.9 on meds Adult heal th examination 247320529 Z00.00 Colonoscop y-2P SA- /23Pneumo vax - NEVERFlu- 07/13/2023 COVID- Has had vaccines but does not have card Overactive urinary bladder 438925297 N32.81 using pads [id number] Jose Rafael Crump MD [facility] Internal Med [address] [facility] [place] [address] 03/17/2024 11:57:04 06/15/2024 11:57:56 Chronic depression 603582668 F32.A Essential hypertension 33955621 I10 Cerebrovas cular accident 798104183 I63.9 Hyperlipidemia 29765572 E78.5 Adult heal th examination 029375407 Z00.00 [id number] Jose Rafael Crump MD [facility] Internal Med [facility] [address] [facility] [place] [address] 04/26/2024 12:03:28 04/26/2024 12:34:54 Infection of tooth 342084624 K04.7 advised to see dentist, needs tooth extraction [id number] Jose Rafael Crump MD [facility] Internal Med [facility] [address] [facility] [place] [address] 06/01/2024 15:08:46 06/01/2024 16:10:18 Essential hypertension 67087883 I10 under control Hyperlipidemia 54454401 E78.5 under control Chronic depression 02856 0009 F32.A not on meds and doing fine Cerebrovas cular accident 164261931 I63.9 on meds Adult heal th examination 296224703 Z00.00 Colonoscop y-2P - 10/27- DUEPneumov ax - NEVERFlu- 07/13/2023 COVID- Has had vaccines but does not have card Urinary incontinence 165 431653 R32 Screening for malignant neoplasm of prostate 948067655 Z12.5 Pruritic rash 16757721 L 28.2 Screening for disorder 481599152 Z13.9 [id number] Jose Rafael Crump MD [facility] Internal Med [address] [facility] [place] [address] 09/14/2024 10:44:54 09/14/2024 11:33:45 Essential hypertension 71774680 I10 under control Hyperlipidemia 39799234 E78.5 under control Chronic depression 54604 0009 F32.A no meds needed Cerebrovas cular accident 519463041 I63.9 on meds Adult heal th examination 009523544 Z00.00 Colonoscop y-2P SA- 06/02/2024 Pneumovax - NEVERPrevn ar 20 todayFlu- 09/14/2024 COVID- Has had vaccines but does not have card Administra tion of influenza vaccine 17256983 Z23 Administra tion of pneumococcal vaccine 91819413 Z23 [id number] Jose Rafael Crump MD [facility] Internal Med [address] [facility] [place] [address] 01/12/2025 11:17:44 01/12/2025 12:06:45 Essential hypertension 73781628 I10 NOT under control Hyperlipidemia 57304860 E78.5 under control with meds Chronic depression 57210 0009 F32.A no meds needed Cerebrovas cular accident 632988593 I63.9 no symptoms Adult [facility] examination 121921398 Z00.00 Colonoscop y- SA- 06/02/2024 Pneumovax - NEVERPrevn ar 20- 09/14/2024 Flu- 09/14/2024 COVID- Has had vaccines but does not have card Overactive urinary bladder 938694622 N32.81 using pads [id number] Jose Rafael Crump MD [facility] Internal Med [address] [facility] [place] [address] 02/22/2025 13:59:47 02/22/2025 15:01:53 Transition of care 8126615138 105 Z75.8 Goals Section Goal Description Progress Status Start Date LastModified by Organization Details LastModified Time Blood Pressure Maintains blood pressure goal as defined [facility] care team [facility] Shanique Barlow RN Information not available 03/17/2024 15:53:36 Family and Social Support Reports family and/or social support needs are met NoCstephaniege active 2023 Shanique Barlow RN Information not available 03/17/2024 15:53:59 Improved Exercise Tolerance Reports increased ability to tolerate exercise and/or physical activity NoCstephaniege active 2023 Shanique Barlow RN Information not available 03/17/2024 15:53:59 Adequate Sleep Achieves adequate, well-rested sleep with minimal disruption NoCfinesse active 2023 Shanique Barlow RN Information not available 03/17/2024 15:53:15 Healthy Diet Patient demonstrates understanding of beneficial diet and [facility] Shanique Barlow RN Information not available 03/17/2024 15:53:59 Coping Patient verbalizes strategies for coping with depresssion [facility] Shanique Barlow RN Information not available 03/17/2024 15:53:36 Medication Regimen Follows medication regimen as per care team recommendation (s) [facility] active 2023 Shanique Barlow RN Information not available 03/17/2024 15:53:59 Chronic Condition Action Plan Follows action plan for any worsening of chronic condition(s) as per care team recommendation (s) [facility] active 2023 Shanique Barlow RN Information not available 03/17/2024 15:53:59 Stress Management Reports effective management of stress [facility] Shanique Barlow RN Information not available 03/17/2024 15:55:19 Adequate Sleep Achieves adequate, well-rested sleep with minimal disruption [facility] Shanique Barlow RN Information not available 03/17/2024 15:55:19 Activities of Daily Living Performs activities of daily living independently or with minimal assistance [facility] active 2023 Shanique Barlow RN Information not available 03/17/2024 15:55:19 Medication Regimen Follows medication regimen as per care team recommendation (s) [facility] active 2023 Shanique Barlow RN Information not available 03/17/2024 15:55:19 Quality of Life Reports satisfaction with quality of life [facility] Shanique Barlow RN Information not available 03/17/2024 15:55:19 Family and Social Support Reports family and/or social support needs are met [facility] active 2023 Shanique Barlow RN Information not available 03/17/2024 15:55:19 Diet Adherence Follows prescribed or recommended diet [facility] active 2023 Shanique Barlow RN Information not available 03/17/2024 15:55:20 Follow-up Appointmen t(s) Attends referral and/or follow-up appointment(s) as per care team recommendation (s) Susanne active 2023 Shanique Barlow RN Information not available 03/17/2024 15:55:20 Knowledge of Disease or Condition Demonstrates understanding of disease(s) or condition(s) Susanne active 2023 Shanique Barlow RN Information not available 03/17/2024 15:55:20 Effective Coping Manages life events with effective coping methods Allison active 2023 Shanique Barlow RN Information not available 03/17/2024 15:55:20 Nutritiona l Risks Reduction Reports [facility] in [facility] risks [facility] Shanique Barlow RN Information not available 03/17/2024 15:55:20 Exercise Regularly Follows a regular exercise regimen or instructed exercise plan as per care team recommendation (s) Susanne active 2023 Shanique Barlow RN Information not available 03/17/2024 15:55:20 Smoking Cessation Quits smoking Susanne active 2023 Shanique Barlow RN Information not available 03/17/2024 15:55:20 Active Range of Motion Demonstrates normal or improved active range of motion as defined by care team Susanne active 2023 Shanique Barlow RN Information not available 03/17/2024 15:55:20 Lipid Levels Maintains normal lipid levels as defined by care team Susanne active 2023 Shanique Barlow RN Information not available 03/17/2024 15:55:20 Weight Maintenanc e Exhibits stable weight with normal fluctuation Susanne active 2023 Shanique Barlow RN Information not available 03/17/2024 15:55:20 Blood Pressure Maintains blood pressure goal as defined by care team Susanne active 2023 Shanique Barlow RN Information not available 03/17/2024 15:55:20 Healthy Weight Maintain a healthy body weight as recommended by your care team Susanne active 2023 Shanique Barlow RN Information not available 03/17/2024 15:55:21 Recreation al Activities Participates in recreational activities [facility] Shanique Barlow RN Information not available 03/17/2024 15:55:21 Self-Advoc acy Advocates effectively for self by communicating desires, feelings and concerns to care team [facility] 20[facility] Shanique Barlow RN Information not available 03/17/2024 15:55:21 Decreased Alcohol Consumptio n Reports decreased alcohol consumption as per care team recommendation (s) [facility] 2023 Shanique Barlow RN Information not available 03/17/2024 15:55:21 Home/Envir onment Safety Reports having a safe environment that promotes independence and prevents injury [facility] 20[facility] Shanique Barlow RN Information not available 03/17/2024 15:55:21 Assistive/ Adaptive Devices Uses assistive/adap tive devices properly and safely as per care team recommendation (s) [facility] 2023 Shanique Barlow RN Information not available 03/17/2024 15:55:21 Caregiver Strain Reduction Verbalizes reduction of strain in caregiver role by feeling fully supported [facility] 2023 Shanique Barlow RN Information not available 03/17/2024 15:55:22 Communicat e Needs Demonstrates the ability to communicate needs and [facility] Shanique Barlow RN Information not available 03/17/2024 15:55:22 Substance Cessation Reduces or avoids substance use [facility] Shanique Barlow RN Information not available 03/17/2024 15:55:22 Health Concerns Section Related Observation LastModified by Organization Detai ls LastModified Time Not Available Not Available Not Available Not Availabl e Concern Status LastModified by Organization Details LastModified Time Hyperlipidemia Active Shanique Barlow RN Not Availabl e 03/17/2024 15:53:59 Cerebrovascular accident Active Shanique Barlow RN Not Available 03/17/2024 15:52:45 Chronic depression Active Shanique Barlow RN Not Avai lable 03/17/2024 15:53:15 Essential hypertension Active Shanique Barlow RN Not Available 03/17/2024 15:53:36 Advance Directives Directive N: paperwork provided 024 Payers Encounter Date Sequence Insurance Name Policy Number Policy Rodas Covered Member ID Rodas Member ID Guarantor Name 04/26/2024 1 [employer] - GOLD PLUS (MEDICARE REPLACEMENT HMO) Nayan Perez [id number] Nayan Perez 06/01/2024 1 [employer] - G[employer] PLUS (MEDICARE REPLACEMENT HMO) Nayan Perez [id number] Nayan Perez 09/14/2024 1 [employer] - GOLD PLUS (MEDICARE REPLACEMENT HMO) Nayan Perez [id number] Nayan Perez 01/12/2025 1 [employer]NA - GOLD PLUS (MEDICARE REPLACEMENT HMO) Nayan Perez [id number] Nayan Perez Notes Date Note Type Note Provider Name and Address Organization Details Recorded Time 4 text/html Pt. stated facial swelling. with left side face pain x 3 days, getting worsealso has swellingno toothacheno ear painfelt feverish few days agono problem swallowingPt. has not been taking Meds for Pain Jose Rafael Crump MD [address] [place] [address], [place] [address], [place], [address], [place] [facility] 04/26/2024 12:36:39 4 text/html Patient is here for a 4 month follow up.Patient is compliant with all meds.Also C/o a rash on his left upper arm and left ankle, states that it really itches. Has been using Hydorcortisone cream and is not helping much. HTN- under control with meds,labs 10/28Meds- on Carvedilol 12.5 mg BID, Olmesartan 40 mg dailyHyperlipidemia- diet is under control, on meds, labs good 10/28Meds- Rosuvastatin 40 mg daily, Ezetimibe 10 mg dailyDepression/Anxiety- was on sertraline, no meds needed any more, doing fineH/o CVA still has right leg weakness, memory not getting worseMeds- Aspirin 81 mg daily, Plavix 75 mg dailySmoker - smokes marijuana and cigarettes, advised to quitH/o alcoholism-Does not drink alcohol anymore since / syncope- no recurrenceAmputated below knee - to get prosthesis and training, was on gabapentin for some pain in the stump, does not taking any more, no more painUrinary incontinence- using depends, symptoms started since the stroke, tried meds, did not help, using 3-4 depends a day Jose Rafael Crump MD [address], [place], [address], [place] 06/01/2024 17:17:16 4 text/html Patient is here for a 4 month follow up.Patient is compliant with all meds.PT IS FASTING ( [employer] ) HTN- under control with meds,Meds- on Carvedilol 12.5 mg BID, Olmesartan 40 mg dailyHyperlipidemia- diet is under control, on meds, labs good 05/28Meds- Rosuvastatin 40 mg daily, Ezetimibe 10 mg dailyDepression/Anxiety- was on sertraline, no meds needed any more, doing fineH/o CVA still has right leg weakness, memory not getting worseMeds- Aspirin 81 mg daily, Plavix 75 mg dailyEx-Smoker - smokes marijuana advised to quitH/o alcoholism-Does not drink alcohol anymore since / syncope- no recurrenceAmputated below knee - to get prosthesis and training, was on gabapentin for some pain in the stump, does not taking any more, no more painUrinary incontinence- using depends, symptoms started since the stroke, tried meds, did not help, using 3-4 depends a day Jose Rafael Crump MD [address], [place], [address], [place] 09/14/2024 17:34:17 5 text/html Patient is here for a 4 month follow up.Patient is compliant with all meds.PT IS FASTING ( [employer] ) HTN- b/p is high today, 168/80, States that he has been taking his meds as prescribed. Denies any nguyen,cp or sobMeds- on Carvedilol 12.5 mg BID, Olmesartan 40 mg dailyHyperlipidemia- diet is under control, on meds, labs good 05/28Meds- Rosuvastatin 40 mg daily, Ezetimibe 10 mg dailyDepression/Anxiety- was on sertraline, no meds needed any more, doing fineH/o CVA still has right leg weakness, memory not getting worseMeds- Aspirin 81 mg daily, Plavix 75 mg dailyEx-Smoker - smokes marijuana advised to quitH/o alcoholism-Does not drink alcohol anymore since 2018s/p syncope- no recurrenceAmputated below knee - to get prosthesis and training, was on gabapentin for some pain in the stump, does not taking any more, no more painUrinary incontinence- using depends, symptoms started since the stroke, tried meds, did not help, using 3-4 depends a day, NOT GETTING WORSE Jose Rafael Crump MD [address] [facility], [facility] [address], [place], [address], [place] [facility] 01/12/2025 12:03:54
--- OUTSIDE RECORDS SUMMARY | 2025-02-22 14:43 | XMS_ITS | Clinical Summary ---
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 Gender Identity Not on file Sexual Orientation [...] - 2023-2 5 season) 2024 02/05/2021, 01/08/2021 Abdominal Aortic Aneurysm (A AA) Screen 2024 07/13/2022 Well Visit 65+ 2024 Influenza Vaccine (Season Ended) 2025 10/10/2019, 07/09/2018, 07/17/2016, Additional history exists Hepatitis C Screening Completed 05/09/2019 Medical Devices Implanted Type Area Paper Sample Clerk Device Identifier Shelf Expiration Date Model / Serial / Lot Maximum [employer] [id number] Miroderm Fenestrated 15x8cm Allograft Noncrosslink L Notch Matrix - [id number] Implanted:Qty: 1 on 05/06/2019 by Ramy Tolentino Jr., MD at [facility] Right: Leg Mi[employer] 01/02/2021 [facility]- / / [id number] [employer] [id number] Gentrix 10x7cm Graft Soft Tissue Porcine Urinary Bladder - [id number] - [id number] Implanted:Qty: 1 on 02/13/2020 by Ramy Tolentino Jr., MD at [facility] Right: Leg [employer] 09/03/2021 [id number] / [id number] / [id number] [employer] [id number] Micromatrix Mirco Particle Matrix 1000mg Tissue - [id number] - [id number] Implanted:Qty: 1 on 02/13/2020 by Ramy Tolentino Jr., MD at [facility] Right: Leg [employer] 07/04/2021 [id number] / [id number] / [id number] Acell Inc [id number] Micromatrix Mirco Particle Matrix 1000mg Tissue - [id number] - [id number] Implanted:Qty: 1 on 02/13/2020 by Ramy Tolentino Jr., MD at [facility] Right: Leg [employer] 10/04/2021 [id number] / [id number] / [id number] Procedures Procedure Name Priority Date/Time Associated Diagnosis [...] stenosis at the inferior edge of the tfjzp-tp-dctn. The right superficial femoral artery is not [...] stenosis at the inferior edge of the excxy-zu-cdrx. The right superficial femoral artery is not [...] JUDE KHANNA Final Result Performing Organization Address City/State/[facility] Co de Phone Number [phone] [place] [address] from Last 3 Months or Most Recently Relevant to Health Maintenance Insurance PPO MEDICARE HU[employer] CHOICE MEDICARE PPO HU[employer]NA CHOICE MEDICARE PPO [employer] CHOICE MEDICARE PPO HUMANA CHOICE MEDICARE PPO MEDICARE [facility] PPO Advance Directives For more information, please contact: [phone] * Full Code (Latest Code Status on File) Date Activated Date Inactivated Comments 07/13/2022 7:48 PM 07/14/2022 10:55 PM * Full Code Date Activated Date Inactivated Comments 02/10/2020 5:23 PM 02/21/2020 11:48 PM * Full Code Date Activated Date Inactivated Comments 02/09/2020 2:03 PM 02/10/2020 5:23 PM * Full Code Date Activated Date Inactivated Comments 04/30/2019 12:46 PM 05/10/2019 9:23 PM Care Teams Informatics Scientist Relationship Specialty Start Date End Date Arthur Crump MD PCP - General Internal Medicine 08/05/17 Jose Miguel Cabrera MD Consulting Physician Cardiovascular Disease 05/10/19 Ramy Tolentino Jr., MD Surgeon General Surgery 05/10/19 Miscellaneous, Not In File 02/20/20
--- OUTSIDE RECORDS SUMMARY | 2025-02-22 14:43 | XMS_ITS | CONTINUITY OF CARE DOCUMENT ---
Author Name so rizzo Address Unknown Organization [facility] Address [address] [place] [address] Phone [phone] Care Team Providers Care Change Management Director Name Role Phone Jose Miguel Cabrera MD Unavailable [phone] Arthur Crump MD Unavailable [phone] Arthur Crump MD Unavailable PROBLEMS Condition Status Date Provider Notes CHEST PAIN, ATYPICAL MILD CA D ON CARDIAC CATHETERIZATION active Raegan Hinojosa MD HTN SYSTOLIC active Raegan Hinojosa MD OBESITY active Raegan Hinojosa MD AORTIC REGURGITATION, MILD TO MODERATE active Raegan Hinojosa MD ENCOUNTERS Date Type Provider Location Encounter Diag nosis - In-person encounter Office Visit Raegan Hinojosa MD [facility] AORTIC REGURGITATION , MILD TO MODERATE - In-person encounter Office Visit Raegan Hinojosa MD [facility] CHEST PAIN, ATYPICAL MILD CAD ON CARDIAC CATHETERIZATIONHTN SYSTOLICOBESITY VITAL SIGNS Date Observation Value Provider blood pressure, diastolic, left arm 80 mm [Hg] Olivia Carlton blood pressure, systolic, left arm 122 mm [Hg] Olivia Carlton blood pressure, diastolic 80 mm[Hg] Avila Carlton blood pressure, systolic 122 mm[Hg] Shahla Carlton pulse rate 64 /min Olivia Carlton oxygen saturation, oximetry 97 % Olivia Carlton respiratory rate E&M 14 /min Codey Carlton weight E&M 186 [lb_av] Olivia Carlton oxygen saturation, oximetry 97 % Lisa Palomo [...] Interpretation Location triiodothyronine (T3), serum 103 ng/dL [facility] thyroid stimulating hormone, serum 1.15 u[IU]/mL [facility] thyroxine, serum, total 7.3 ug/dL [facility] triglyceride, serum, fasting 88 mg/dL [facility] HDL cholesterol, serum 42 mg/dL [facility] LDL cholesterol, serum 163 mg/dL [facility] cholesterol, serum 223 mg/dL [facility] anion gap, serum 9.7 [facility] globulins, serum, total 3.4 g/dL [facility] estimated glomerular filtration rate >60 [facility] albumin/globulin ratio, serum 1.3 [facility] protein, total, serum 7.8 g/dL [facility] albumin, serum 4.4 g/dL [facility] bilirubin, serum, total 0.90 mg/dL [facility] alkaline phosphatase, serum 102 1/L [facility] alanine aminotransferase (SGPT), serum 28 1/L [facility] aspartate aminotransferase (SGOT), serum 19 1/L [facility] calcium, serum 9.5 mg/dL [facility] blood glucose, fasting 88 mg/dL [facility] creatinine, serum 1.16 mg/dL [facility] urea nitrogen, blood 17.1 mg/dL [facility] carbon dioxide, serum, total 26 mmol/L [facility] chloride, serum 104 mmol/L [facility] potassium, serum 3.7 mmol/L [facility] sodium, serum 136 mmol/L [facility] platelet count 207 10*3/uL [facility] red blood cell distribution width 14.9 % [facility] mean corpuscular hemoglobin concentration, RBC 34.0 g/dL [facility] mean corpuscular hemoglobin, RBC 28.2 pg [facility] mean corpuscular volume, RBC 83.0 fL [facility] hematocrit, blood 45.3 % [facility] hemoglobin, blood 15.4 g/dL [facility] erythrocyte (RBC) count 5.46 10*6/mm3 [facility] monocytes as percent of blood leukocytes 12.9 % [facility] lymphocytes as percent of blood leukocytes 28.9 % [facility] leukocyte count, blood 8.8 10*3/mm3 [facility] troponin I <0.04 [facility] creatine kinase, serum 188 1/L Yusuf Baker [...] TABS (CITALOPRAM HYDROBROMIDE) active once daily Olivia Carlton LORAZEPAM 0.5 MG ORAL TABLET active three [...] Payer name Policy type / Coverage type [place] red democrat ID KAY RENO PLUS O HMO [id number] TREATMENT PLAN Date Name Performer hospital follow [...] Normal right heart hemodynamics. Systemic hypertension. - (06/13/2011) A rterial Doppler (leg): No evidence [...] estimated at 55%. (03/29/2011) Raegan Hinojosa MD hospital follow up: [...] Essential hypertension. Continue aggressive risk factor modification. [facility] (09/17/2010) C K: 188 (09/17/2010) Troponin I: <0.04 (09/17/2010) Echocardiogram: There is aortic valve sclerosis. Moderate aortic valve regurgitation. Normal aortic root size. Normal left ventricular systolic function. Normal left ventricular size. Moderate concentric left ventricular hypertrophy. There is impaired LV relaxation. Left ventricular e jection fraction is estimated at 55%. GC (03/29/2011) Raegan Hinojosa MD
--- OUTSIDE RECORDS SUMMARY | 2025-02-22 14:43 | XMS_ITS | Clinical Summary ---
Author Organization [facility] Address [address] [place] [address] Care Team Providers Care Pipe Fitter Name Role Phone Arthur Crump MD Primary Care Provider [phone] Source Comments [facility],non-owned Affiliates and Associated Physician Practices is amultiple site organization consisting of ambulatory clinics and hospital sitesin [place], [place], [place] and [place]. This disclosure is being madepursuant to the Care Everywhere program and may not contain all information available regarding this patient. 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 Gender Identity Not on file Sexual Orientation Not on file Last Filed Vital Signs Vital Sign Reading Time Taken Comments Blood Pressure 144/78 09/22/2018 1:59 PM SENIOR PACKAGING ENGINEER Pulse 92 09/22/2018 1:59 PM SENIOR PACKAGING ENGINEER Temperature 36.5 C (97.7 F) 01/28/2018 12:00 PM CDT Respiratory Rate 14 09/22/2018 1:59 PM SENIOR PACKAGING ENGINEER Oxygen Saturation 94% 09/22/2018 1:59 PM SENIOR PACKAGING ENGINEER Inhaled Oxygen Concentration - - Weight 74.8 kg (165 lb) 09/22/2018 1:59 PM SENIOR PACKAGING ENGINEER Height 162.6 cm (5' 4 ) 09/22/2018 1:59 PM SENIOR PACKAGING ENGINEER Body Mass Index 28.32 09/22/2018 1:59 PM SENIOR PACKAGING ENGINEER Plan of Treatment Health Maintenance Due Date [...] - 21 mg/dL 01/28/2018 9:43 AM CDT [facility] Creatinine 0.83 0.50 - 1.30 mg/dL 01/28/2018 9:43 AM CDT [facility] eGFR by MDRD >60 >60 mL/min/1.7 3m2 01/28/2018 9:43 AM CDT [facility] eGFR by MDRD >60 >60 mL/min/1.7 3m2 01/28/2018 9:43 AM CDT [facility] Blood BLOOD SPECIMEN / Unknown Venipuncture / Unknown 01/28/2018 9:26 AM CDT 01/28/2018 9:26 AM CDT us Jimmy Suarez MD LAB - CHEMISTRY ORDERABLES Fi nal Result Performing Organization Address [facility] Co de Phone Number [facility] [id number] [place] [id number] * (ABNORMAL) LIPID PROFILE (04/25/2017 3:32 AM CDT) [facility] Signature Cholesterol 195 <200 mg/dL 04/25/2017 4:28 AM CDT [facility] Triglycerides 58 <150 mg/dL 04/25/2017 4:28 AM CDT [facility] HDL Cholesterol 46 >40 mg/dL 7 4:28 AM CDT [facility] LDL Calculated 137(H) <130 mg/dL 04/25/2017 4:28 AM CDT [facility] VLDL Calculated 12 <=30 mg/dL 7 4:28 AM CDT [facility] Chol HDL Ratio 4.2 <4.5 04/25/2017 4:28 AM CDT [facility] LDL/HDL Ratio 3.0 <5.0 04/25/2017 4:28 AM CDT [facility] Blood BLOOD SPECIMEN / Unknown Venipuncture / Unknown 04/25/2017 3:32 AM CDT 04/25/2017 3:39 AM CDT us Jonathan Solorzano MD LAB - CHEMISTRY ORDERABLES Final Result Performing Organization Address City/[facility]/ZIP Co de Phone Number [facility] [address] [place] [address] from Last 3 Months or Most Recently Relevant to Health Maintenance Insurance MEDICAID [facility] Advance Directives * Full Code (Latest Code [...] 1:14 AM 09/08/2013 3:08 AM Care Teams Pipe Fitter Relationship Specialty Start Date End Date Arthur Crump MD [address] [place] [phone] PCP - General Internal Medicine 04/28/17
--- OUTSIDE RECORDS SUMMARY | 2025-02-22 14:43 | XMS_ITS | Referral Summary ---
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 Gender Identity Not on file Sexual Orientation [...] on file Medical Devices Implanted Type Area Threshing Operator Device Identifier Shelf Expiration Date Model / Serial / Lot [employer] [id number] Miroderm Fenestrated 15x8cm Allograft Noncrosslink L Notch Matrix - [id number] Implanted:Qty: 1 on 05/06/2019 by Ramy Tolentino Jr., MD at [facility] Right: Leg [employer] 01/02/2021 [facility]- / / [id number] [employer]cell [employer] [id number] Gentrix 10x7cm Graft Soft Tissue Porcine Urinary Bladder - [id number] - [id number] Implanted:Qty: 1 on 02/13/2020 by Ramy Tolentino Jr., MD at [facility] Right: Leg [employer] 09/03/2021 [id number] / [id number] / [id number] Acell Inc [id number] Micromatrix Mirco Particle Matrix 1000mg Tissue - [id number] - [id number] Implanted:Qty: 1 on 02/13/2020 by Ramy Tolentino Jr., MD at [facility] Right: Leg [employer] 07/04/2021 [id number] / [id number] / [id number] [employer] [id number] Micromatrix Mirco Particle Matrix 1000mg Tissue - [id number] - [id number] Implanted:Qty: 1 on 02/13/2020 by Ramy Tolentino Jr., MD at [facility] Right: Leg [employer] 10/04/2021 [id number] / [id number] / [id number] Procedures Procedure Name Priority Date/Time Associated Diagnosis [...] stenosis at the inferior edge of the imicu-bf-qdqj. The right superficial femoral artery is not [...] stenosis at the inferior edge of the tmera-ji-efyr. The right superficial femoral artery is not [...] MICROBIOLOGY - GENERAL JUDE KHANNA Final Result [facility] [address] [place] [address] from Last 3 Months or Most Recently Relevant to Health Maintenance Insurance [employer]ET[employer] [facility] PPO MEDICARE HUMANA CHOICE MEDICARE PPO HUMANA CHOICE MEDICARE PPO HUMANA CHOICE MEDICARE PPO [employer] CHOICE MEDICARE PPO MEDICARE [facility] PPO Advance Directives For more information, please contact: [phone] * Full Code (Latest Code Status on File) Date Activated Date Inactivated Comments 07/13/2022 7:48 PM 07/14/2022 10:55 PM * Full Code Date Activated Date Inactivated Comments 02/10/2020 5:23 PM 02/21/2020 11:48 PM * Full Code Date Activated Date Inactivated Comments 02/09/2020 2:03 PM 02/10/2020 5:23 PM * Full Code Date Activated Date Inactivated Comments 04/30/2019 12:46 PM 05/10/2019 9:23 PM Care Teams Disaster Recovery Consultant Relationship Specialty Start Date End Date Arthur Crump MD PCP - General Internal Medicine 08/05/17 Jose Miguel Cabrera MD Consulting Physician Cardiovascular Disease 05/10/19 Ramy Tolentino Jr., MD Surgeon General Surgery 05/10/19 Miscellaneous, Not In File 02/20/20
--- OUTSIDE RECORDS SUMMARY | 2025-02-22 14:43 | XMS_ITS | Continuity of Care Document ---
Author Organization [facility] Address [address] [place] [address] [place] [address] Phone Care Team Providers Care Infantry Weapons Crewmember Name Role Phone Kade Pastrana DO Unavailable Unavailable Advance Directives Directive Yes / No Effective Date File Name No Information Encounters Encounter Description Practice Location Reason(s) For Visit Diagnoses Date Provider Providers Copied on Encounter [facility], [address], [place], [place], [id number], [place] [phone] [facility] No Information Zeina Ovalles. [address], [place], [address], [place]. tel: [phone] Family History Family Member Type Diagnosis Age At Onset No Information Payers Payer name Insurance type Covered libertarian ID Authoriza tion(s) [facility] Commercial [id number] Social History Type Description Quantity Date Captured Comments Sex Male Smoking Status No Information Chief Complaint And Reason For Visit No Information Reason For Referral Reason For Referral No Information History Of Present Illness Encounter Date Complaint History Of Prese nt Illness No Information Functional Status Date Functional Assessmen t No Information Instructions Date Instruction Additional Infor mation No Information Assessments Type Assessment Date No Information Patient Care Teams Name Effective Dates (start - stop) Status Members No Information
[2025-02-22 15:19] VITALS: BP 154/64; PULSE 65; RESP 17; TEMP 36.6; O2SAT 100
--- NOTE | 2025-02-22 16:21 | ED_ITS ---
HPI - Recheck/Abnormal Lab/Rx General Chief Complaint: Recheck/Abnormal Lab/Rx Stated Complaint: ELEVATED BP 230/110 Time Seen by Provider: 02/22/25 16:21 Source: patient and family Mode of arrival: ambulatory Limitations: no limitations History of Present Illness HPI narrative: Patient is a 64 y/o male who presents to the ED with c/o elevated BP. 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 He is scheduled to follow up with [facility] [place] vascular surgery early next month. He had a follow-up appointment with his primary care doctor today and his blood pressure and was noted to be elevated in the primary is office, reported at 230/110. He was then sent here for further evaluation. Patient is on Olmesartan 40mg, carvedilol 12.5mg BID for his blood pressure and took these this morning. He does note that he usually becomes very anxious when he goes to his primary's office and his blood pressure is elevated. Upon my eval, HR 64, SaO2 100%, repeat BP 170s systolic. Patient is asymptomatic at this time. He states he feels at his baseline and completely normal. He denies dizziness, lightheadedness, vision changes, headache, chest pain, shortness of breath, nausea, vomiting, focal numbness or weakness, pain/numbness/swelling of right lower extremity. 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 Related Data Home Medications ?Medication ?Instructions ?Recorded ?Confirmed ?Last Taken ?Type aspirin 81 mg tablet,delayed 81 mg PO DAILY 02/20/25 02/20/25 Unknown History release (Adult Aspirin Regimen) carvedilol 12.5 mg tablet 12.5 mg PO BID 02/20/25 02/20/25 Unknown History clopidogrel 75 mg tablet 75 mg PO DAILY 02/20/25 02/20/25 Unknown History ezetimibe 10 mg tablet 10 mg PO DAILY 02/20/25 02/20/25 Unknown History olmesartan 40 mg tablet 40 mg PO DAILY 02/20/25 02/20/25 Unknown History rosuvastatin 40 mg tablet (Crestor) 40 mg PO DAILY 02/20/25 02/20/25 Unknown History Allergies Allergy/AdvReac Type Severity Reaction Status Date / Time amoxicillin Allergy Unknown Other Verified 02/22/25 14:37 erythromycin base Allergy Unknown Other Verified 02/22/25 14:37 Review of Systems Review of Systems: All systems reviewed & are unremarkable except as noted in HPI. All systems reviewed & are unremarkable except as noted in HPI and below PMFSH Family History Family History Father Hypertension Family history of diabetes mellitus in first degree relative Mother Hypertension Grandparent Family history of throat cancer Social History Social History Smoking status: Never smoker Alcohol intake: current Exam Narrative: GENERAL: Well appearing, well-nourished, non-toxic, in no acute distress. HEAD: Normocephalic, atraumatic. RESPIRATORY: Airway patent, respirations nonlabored. Clear to auscultation bilaterally, no rales, rhonchi, wheezing. CARDIOVASCULAR: Regular rate and rhythm without murmurs, rubs, or gallops. MUSCULOSKELETAL: Moves all extremities. No gross deformities. Right AKA. No swelling or erythema or warmth of right lower extremity. No pain throughout right lower extremity. SKIN: Warm, dry, normal color. NEURO: A&O X3. Speech clear. Cranial nerves II-XII grossly intact. Steady gait. No ataxic movements. No focal deficits. PSYCHIATRIC: Appropriate mood and affect. Normal interaction. Course Vital Signs Vital signs: Vital Signs Temperature 97.8 F 02/22/25 15:19 Pulse Rate 65 02/22/25 15:19 Respiratory Rate 17 02/22/25 15:19 Blood Pressure 154/64 H 02/22/25 15:19 Pulse Oximetry 100 02/22/25 15:19 Oxygen Delivery Room Air 02/22/25 15:19 Temperature 97.8 F 02/22/25 15:19 Pulse Rate 65 02/22/25 15:19 Respiratory Rate 17 02/22/25 15:19 Blood Pressure 154/64 H 02/22/25 15:19 Pulse Oximetry 100 02/22/25 15:19 Oxygen Delivery Room Air 02/22/25 15:19 MDM - Recheck/Abnormal Lab/Rx MDM Narrative Medical decision making narrative: Patient presented to ED with elevated blood pressure at primary care doctor's office. Was seen in the ED here recently for chest pain, had negative cardiac workup. Blood pressure upon arrival 154/64. Patient does admit to white coat hypertension. At the time of my evaluation, blood pressure was repeated and sl ightly higher at 170 systolic. Patient is asymptomatic at this time however. He denies any red flag symptoms. He does admit to feeling slightly anxious at the doctor's office, but otherwise denies dizziness, lightheadedness, chest pain, headache, vision changes, shortness breath, pain or swelling of leg, focal numbness or weakness, or feeling off in any way. Discussed asymptomatic hypertension and risks of artificially /quickly lowering blood pressure. At this time, feel patient is safe for discharge home with continued close outpatient follow-up. Advised patient to monitor blood pressure at home where he is in his comfortable environment, keep recording of the numbers. Follow-up with PCP again. Continue home medications as prescribed. Discussed very strict return precautions. Patient and family are in agreement with plan and feel comfortable going home. Discharged in stable condition. Medical Records Attestation: I reviewed the patient's medical records. Discharge Plan Discharge Clinical Impression: Elevated blood pressure reading with diagnosis of hypertension Patient Disposition: Home Condition: Stable Instructions: Antibiotic Form, Chronic Hypertension (ED), Hypertension (ED) Additional Instructions: Your blood pressure here improved without intervention. Continue home blood pressure medications. Continue to monitor blood pressure at home and keep recording of this. Follow-up again with your primary care doctor for further evaluation. Continue to follow-up with vascular surgery as previously scheduled. Return to the ED if you experience persistently elevated blood pressures (>190s top number), dizziness, lightheadedness, feeling as though your about to pass out, chest pain, shortness of breath, unable to keep down food or drink, fevers, numbness or weakness of arm or leg, vision changes, persistent headaches, or any other symptoms of concern. Patient Language: Yi Prescriptions: No Action aspirin [Adult Aspirin Regimen] 81 mg tablet,delayed release (DR/EC) 81 mg PO DAILY clopidogrel 75 mg tablet 75 mg PO DAILY carvedilol 12.5 mg tablet 12.5 mg PO BID Rx Instructions: must administer with a meal/food rosuvastatin [Crestor] 40 mg tablet 40 mg PO DAILY olmesartan 40 mg tablet 40 mg PO DAILY ezetimibe 10 mg tablet 10 mg PO DAILY Follow-up/Referrals: Alisia,Arthur Verma MD [Primary Care Provider] - Time of Disposition: 16:37
--- OUTSIDE RECORDS SUMMARY | 2025-02-22 16:36 | XMS_ITS | Clinical Summary ---
Author Organization [facility] Address [address] [place] [address] Care Team Providers Care Motor Vehicle Clerk Name Role Phone Arthur Crump MD Primary Care Provider [phone] Source Comments [facility],non-owned Affiliates and Associated Physician Practices is amultiple site organization consisting of ambulatory clinics and hospital sitesin [place], [place], [place] and [place]. This disclosure is being madepursuant to the Care Everywhere program and may not contain all information available regarding this patient. 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 Gender Identity Not on file Sexual Orientation Not on file Last Filed Vital Signs Vital Sign Reading Time Taken Comments Blood Pressure 144/78 09/22/2018 1:59 PM WEB PRESS ROLL TENDER Pulse 92 09/22/2018 1:59 PM WEB PRESS ROLL TENDER Temperature 36.5 C (97.7 F) 01/28/2018 12:00 PM CDT Respiratory Rate 14 09/22/2018 1:59 PM WEB PRESS ROLL TENDER Oxygen Saturation 94% 09/22/2018 1:59 PM WEB PRESS ROLL TENDER Inhaled Oxygen Concentration - - Weight 74.8 kg (165 lb) 09/22/2018 1:59 PM WEB PRESS ROLL TENDER Height 162.6 cm (5' 4 ) 09/22/2018 1:59 PM WEB PRESS ROLL TENDER Body Mass Index 28.32 09/22/2018 1:59 PM WEB PRESS ROLL TENDER Plan of Treatment Health Maintenance Due Date [...] - 21 mg/dL 01/28/2018 9:43 AM CDT [facility] Creatinine 0.83 0.50 - 1.30 mg/dL 01/28/2018 9:43 AM CDT [facility] eGFR by MDRD >60 >60 mL/min/1.7 3m2 01/28/2018 9:43 AM CDT [facility] eGFR by MDRD >60 >60 mL/min/1.7 3m2 01/28/2018 9:43 AM CDT [facility] Blood BLOOD SPECIMEN / Unknown Venipuncture / Unknown 01/28/2018 9:26 AM CDT 01/28/2018 9:26 AM CDT us Jimmy Suarez MD LAB - CHEMISTRY ORDERABLES Fi nal Result Performing Organization Address [facility] Co de Phone Number [facility] [id number] [place] [id number] * (ABNORMAL) LIPID PROFILE (04/25/2017 3:32 AM CDT) [facility] Signature Cholesterol 195 <200 mg/dL 04/25/2017 4:28 AM CDT [facility] Triglycerides 58 <150 mg/dL 04/25/2017 4:28 AM CDT [facility] HDL Cholesterol 46 >40 mg/dL 7 4:28 AM CDT [facility] LDL Calculated 137(H) <130 mg/dL 04/25/2017 4:28 AM CDT [facility] VLDL Calculated 12 <=30 mg/dL 7 4:28 AM CDT [facility] Chol HDL Ratio 4.2 <4.5 04/25/2017 4:28 AM CDT [facility] LDL/HDL Ratio 3.0 <5.0 04/25/2017 4:28 AM CDT [facility] Blood BLOOD SPECIMEN / Unknown Venipuncture / Unknown 04/25/2017 3:32 AM CDT 04/25/2017 3:39 AM CDT us Jonathan Solorzano MD LAB - CHEMISTRY ORDERABLES Final Result Performing Organization Address City/[facility]/ZIP Co de Phone Number [facility] [address] [place] [address] from Last 3 Months or Most Recently Relevant to Health Maintenance Insurance MEDICAID [facility] Advance Directives * Full Code (Latest Code [...] 1:14 AM 09/08/2013 3:08 AM Care Teams Motor Vehicle Clerk Relationship Specialty Start Date End Date Arthur Crump MD [address] [place] [phone] PCP - General Internal Medicine 04/28/17
--- OUTSIDE RECORDS SUMMARY | 2025-02-22 16:36 | XMS_ITS | Continuity of Care Document ---
Author Organization [facility] Address [id number] [place] [address] [place] [address] Phone Care Team Providers Care Car Tracer Name Role Phone Kade Pastrana DO Unavailable Unavailable Advance Directives Directive Yes / No Effective Date File Name No Information Encounters Encounter Description Practice Location Reason(s) For Visit Diagnoses Date Provider Providers Copied on Encounter [facility], [address], [place], [place], [id number], [place] tel:[phone] [facility] No Information Zeina Ovalles. [address], [place], [address], [place]. tel: [phone] Family History Family Member Type Diagnosis Age At Onset No Information Payers Payer name Insurance type Covered alliance party ID Authoriza tion(s) [facility] Commercial [id number] Social History Type Description Quantity Date Captured [...]
--- OUTSIDE RECORDS SUMMARY | 2025-02-22 16:36 | XMS_ITS | CONTINUITY OF CARE DOCUMENT ---
Author Name so rizoz Address Unknown Organization [facility] Address 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 Raegan Hinojosa MD HTN SYSTOLIC active Raegan Hinojosa MD OBESITY active Raegan Hinojosa MD AORTIC REGURGITATION, MILD TO MODERATE active Raegan Hinojosa MD ENCOUNTERS Date Type Provider Location Encounter Diag nosis - In-person encounter Office Visit Raegan Hinojosa MD [facility] AORTIC REGURGITATION , MILD TO MODERATE - In-person encounter Office Visit Raegan Hinojosa MD [facility] CHEST PAIN, ATYPICAL MILD CAD ON [...] Interpretation Location triiodothyronine (T3), serum 103 ng/dL [facility] thyroid stimulating hormone, serum 1.15 u[IU]/mL [facility] thyroxine, serum, total 7.3 ug/dL [facility] triglyceride, serum, fasting 88 mg/dL [facility] HDL cholesterol, serum 42 mg/dL [facility] LDL cholesterol, serum 163 mg/dL [facility] cholesterol, serum 223 mg/dL [facility] anion gap, serum 9.7 [facility] globulins, serum, total 3.4 g/dL [facility] estimated glomerular filtration rate >60 [facility] albumin/globulin ratio, serum 1.3 [facility] protein, total, serum 7.8 g/dL [facility] albumin, serum 4.4 g/dL [facility] bilirubin, serum, total 0.90 mg/dL [facility] alkaline phosphatase, serum 102 1/L [facility] alanine aminotransferase (SGPT), serum 28 1/L [facility] aspartate aminotransferase (SGOT), serum 19 1/L [facility] calcium, serum 9.5 mg/dL [facility] blood glucose, fasting 88 mg/dL [facility] creatinine, serum 1.16 mg/dL [facility] urea nitrogen, blood 17.1 mg/dL [facility] carbon dioxide, serum, total 26 mmol/L [facility] chloride, serum 104 mmol/L [facility] potassium, serum 3.7 mmol/L [facility] sodium, serum 136 mmol/L [facility] platelet count 207 10*3/uL [facility] red blood cell distribution width 14.9 % [facility] mean corpuscular hemoglobin concentration, RBC 34.0 g/dL [facility] mean corpuscular hemoglobin, RBC 28.2 pg [facility] mean corpuscular volume, RBC 83.0 fL [facility] hematocrit, blood 45.3 % [facility] hemoglobin, blood 15.4 g/dL [facility] erythrocyte (RBC) count 5.46 10*6/mm3 [facility] monocytes as percent of blood leukocytes 12.9 % [facility] lymphocytes as percent of blood leukocytes 28.9 % [facility] leukocyte count, blood 8.8 10*3/mm3 [facility] troponin I <0.04 [facility] creatine kinase, serum 188 1/L Yusuf [...] Payer name Policy type / Coverage type [place] red democrat ID [employer] O HMO [id number] TREATMENT PLAN Date Name Performer hospital follow [...] Essential hypertension. Continue aggressive risk factor modification. [facility] (09/17/2010) C K: 188 (09/17/2010) Troponin [...]
--- OUTSIDE RECORDS SUMMARY | 2025-02-22 16:36 | XMS_ITS | Clinical Summary ---
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 Gender Identity Not on file Sexual Orientation [...] Completed 05/09/2019 Medical Devices Implanted Type Area Gas Meter Repairer Device Identifier Shelf Expiration Date Model / Serial / Lot [employer] [id number] Miroderm Fenestrated 15x8cm Allograft Noncrosslink L Notch Matrix - [id number] Implanted:Qty: 1 on 05/06/2019 by Ramy Tolentino Jr., MD at [facility] Right: Leg [employer] 01/02/2021 [facility]- / / [id number] [employer] [id number] Gentrix 10x7cm Graft Soft Tissue Porcine Urinary Bladder - [id number] - [id number] Implanted:Qty: 1 on 02/13/2020 by Ramy Tolentino Jr., MD at [facility] Right: Leg [employer] 09/03/2021 [id number] / [id number] / [id number] [employer] [id number] Micromatrix Mirco Particle Matrix 1000mg Tissue - [id number] - [id number] Implanted:Qty: 1 on 02/13/2020 by Ramy Tolentino Jr., MD at [facility] Right: Leg [employer] 07/04/2021 [id number] / [id number] / [id number] [employer] [id number] Micromatrix Mirco Particle Matrix 1000mg Tissue - [id number] - [id number] Implanted:Qty: 1 on 02/13/2020 by Ramy Tolentino Jr., MD at [facility] Right: Leg [employer] 10/04/2021 [id number] / [id number] / [id number] Procedures Procedure Name Priority Date/Time Associated Diagnosis [...] stenosis at the inferior edge of the yalar-gu-dbxn. The right superficial femoral artery is not [...] stenosis at the inferior edge of the dmoyt-cq-zajj. The right superficial femoral artery is not [...] JUDE KHANNA Final Result Performing Organization Address City/State/[facility] Co de Phone Number [phone] Department [place] [address] from Last 3 Months or Most Recently Relevant to Health Maintenance Insurance PPO MEDICARE [employer] CHOICE MEDICARE PPO [employer] CHOICE MEDICARE PPO [employer] CHOICE MEDICARE PPO [employer] CHOICE MEDICARE PPO [facility] Advance Directives For more information, please contact: [phone] * Full Code (Latest Code Status on File) Date Activated Date Inactivated Comments 07/13/2022 7:48 PM 07/14/2022 10:55 PM * Full Code Date Activated Date Inactivated Comments 02/10/2020 5:23 PM 02/21/2020 11:48 PM * Full Code Date Activated Date Inactivated Comments 02/09/2020 2:03 PM 02/10/2020 5:23 PM * Full Code Date Activated Date Inactivated Comments 04/30/2019 12:46 PM 05/10/2019 9:23 PM Care Teams It Solutions Sales Consultant Relationship Specialty Start Date End Date Arthur Crump MD PCP - General Internal Medicine 08/05/17 Jose Miguel Cabrera MD Consulting Physician Cardiovascular Disease 05/10/19 Ramy Tolentino Jr., MD Surgeon General Surgery 05/10/19 Miscellaneous, Not In File 02/20/20
--- OUTSIDE RECORDS SUMMARY | 2025-02-22 16:36 | XMS_ITS | Encounter Summary ---
Author Organization [facility] Address [address] [place] [address] Care Team Providers Care Cadd Drafter Name Role Phone Arthur Crump MD Primary Care Provider [phone] Jose Miguel Cabrera MD Unavailable Rajan Carrillo MD, Ramy Nowak Unavailable [phone] Miscellaneous, Not In File Unavailable Unava ilable Encounter Details Date Type Department Care Team (Late st Contact Info) Description 02/13/[address] [address] Odalys Reyna, RN Social History Tobacco Use Types Packs/Day Years Used Date Smoking Tobacco: Never Smokeless Tobacco: Never Alcohol Use Standard Drinks/Week Comments Not Currently 0 (1 standard drink = 0.6 oz pur e alcohol) Sex and Gender Information Value Date Recorded Sex Assigned at Not on file 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
--- OUTSIDE RECORDS SUMMARY | 2025-02-22 16:37 | XMS_ITS | Referral Summary ---
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 Gender Identity Not on file Sexual Orientation [...] on file Medical Devices Implanted Type Area Typing Office Worker Device Identifier Shelf Expiration Date Model / Serial / Lot [employer] [id number] Miroderm Fenestrated 15x8cm Allograft Noncrosslink L Notch Matrix - [id number] Implanted:Qty: 1 on 05/06/2019 by Ramy Tolentino Jr., MD at Right: Leg [employer] 01/02/2021 BLM- / / [id number] [employer] [id number] Gentrix 10x7cm Graft Soft Tissue Porcine Urinary Bladder - [id number] - [id number] Implanted:Qty: 1 on 02/13/2020 by Ramy Tolentino Jr., MD at Right: Leg [employer] 09/03/2021 [id number] / [id number] / [id number] [employer] [id number] Micromatrix Mirco Particle Matrix 1000mg Tissue - [id number] - [id number] Implanted:Qty: 1 on 02/13/2020 by Ramy Tolentino Jr., MD at Right: Leg [employer] 07/04/2021 [id number] / [id number] / [id number] [employer] [id number] Micromatrix Mirco Particle Matrix 1000mg Tissue - [id number] - [id number] Implanted:Qty: 1 on 02/13/2020 by Ramy Tolentino Jr., MD at Right: Leg [employer] 10/04/2021 [id number] / [id number] / [id number] Procedures Procedure Name Priority Date/Time Associated Diagnosis [...] stenosis at the inferior edge of the nwnlh-of-brax. The right superficial femoral artery is not [...] stenosis at the inferior edge of the ogztx-kg-ethx. The right superficial femoral artery is not [...] MICROBIOLOGY - GENERAL JUDE KHANNA Final Result [facility] [address] Department [place] [address] from Last 3 Months or Most Recently Relevant to Health Maintenance Insurance [facility] [facility] PPO MEDICARE [employer] CHOICE MEDICARE PPO [employer] CHOICE MEDICARE PPO [employer] CHOICE MEDICARE PPO [employer] CHOICE MEDICARE PPO MEDICARE [facility] Address: [address] [address] [facility] PPO Advance Directives For more information, please contact: [phone] * Full Code (Latest Code Status on File) Date Activated Date Inactivated Comments 07/13/2022 7:48 PM 07/14/2022 10:55 PM * Full Code Date Activated Date Inactivated Comments 02/10/2020 5:23 PM 02/21/2020 11:48 PM * Full Code Date Activated Date Inactivated Comments 02/09/2020 2:03 PM 02/10/2020 5:23 PM * Full Code Date Activated Date Inactivated Comments 04/30/2019 12:46 PM 05/10/2019 9:23 PM Care Teams Mitochondrial Disorders Counselor Relationship Specialty Start Date End Date Arthur Crump MD PCP - General Internal Medicine 08/05/17 Jose Miguel Cabrera MD Consulting Physician Cardiovascular Disease 05/10/19 Ramy Tolentino Jr., MD Surgeon General Surgery 05/10/19 Miscellaneous, Not In File 02/20/20
== END 2025-02-22 16:50 | disposition home or self-care (01) ==
PROVIDERS: Emergency Provider Physician Assistant; PCP Internal Medicine
DX: I10 Essential (primary) hypertension (principal); I72.3 Aneurysm of iliac artery; Z79.82 Long term (current) use of aspirin; Z79.02 Long term (current) use of antithrombotics/antiplatelets; Z79.899 Other long term (current) drug therapy
CPT/HCPCS: 99281